=== PATIENT | female | born 1945 | race Caucasian/White ===

== ENCOUNTER 2017-11-06 15:39 | Emergency (ER) | payer MEDICARE, BC ==
[~2017-11-06] VITALS: Ht 157.5 cm; Wt 68.0 kg
[~2017-11-06 15:39] MED LIST: ALE70 PO; CALC600T63 PO; DIA5 PO; LEVO137T23 PO; LEVO137T26 PO; MULT-820 PO; ONDA4TAB97 PO; OXYGENHOME INH; RAMI10CA52 PO; SERT-173 PO; SERT20OR6 PO; VALS-25 PO
--- NOTE | 2017-11-06 15:55 | ER Report ---
History and Physical Time Seen By MD: 15:49 Hx. of Stated Complaint: flu like [id number], sob, N/V/D, currently on doxy HPI/ROS CHIEF COMPLAINT: dont feel well HISTORY OF PRESENT ILLNESS: Pt started sunday night/early Sunday with sorethroat , congestion, cough, chills and bodyaches. Pt went to urgent care and was started on doxy. PT no wwith decreased appetite and some loose stool inaddition to prior symptoms. No chest pain. No abd pain. not sure if she has had a fever. PT wears oxygen at night for copd but has not used it during the day. pt got her flu shot. Pt concerned about pneumonia REVIEW OF SYSTEMS: Constitutional: ? fever, + chills. Eyes: No discharge. ENT: + sore throat. Cardiovascular: No chest pain, no palpitations. Respiratory: + cough, + shortness of breath. Gastrointestinal: No abdominal pain, no vomiting. Genitourinary: No hematuria. Musculoskeletal: No back pain, + diffuse bodyaches Skin: No rashes. Neurological: No headache. Allergies: Coded Allergies: No Known Drug Allergies (Verified , 11/06/17) Home Meds Active Scripts Sertraline Hcl (ZOLOFT) 100 Mg Tablet, 1 TAB PO QDAY, #30 TAB Prov:AURORA CASTILLO MD 10/29/17 Ramipril (RAMIPRIL) 10 Mg Capsule, 1 CAP PO QDAY, #30 CAPSULE Prov:AURORA CASTILLO MD 10/29/17 Levothyroxine Sodium (LEVOTHYROXINE SODIUM) 137 Mcg Tablet, 1 TAB PO QDAY, #30 TAB Prov:AURORA CASTILLO MD 10/29/17 Reported Medications Multivitamin (MULTIVITAMINS) Unknown Strength Tablet, PO 05/15/17 Oxygen (OXYGEN) Unknown Strength Inha, INH QHS, L 05/15/17 Calcium Carbonate (CALCIUM) 600 Mg Tablet, 1200 MG PO QHS 05/15/17 Past Medical/Surgical History Pmhx: htn, hypothryoid, copd, divertic, kidney stones Pshx: faye, spinal surgery, tka Reviewed Nurses Notes: Yes Old Medical Records Reviewed: Yes Hx Smoking: No Smoking Status: Never Smoker Exposure to Second Hand Smoke?: Yes () Hx Substance Use Disorder: No Hx Alcohol Use: No Constitutional Vital Sign - Last 24 Hours 11/06/17 11/06/17 11/06/17 11/06/17 15:44 15:44 15:54 15:54 Temp 97.9 Pulse 71 68 Resp 16 B/P (MAP) 145/86 145/86 (105) Pulse Ox 95 95 O2 Delivery Room Air O2 Flow Rate 2.0 11/06/17 11/06/17 11/06/17 11/06/17 16:00 16:09 16:14 16:30 Pulse 67 67 B/P (MAP) 124/75 (91) 142/63 (89) Pulse Ox 95 93 Physical Exam General Appearance: The patient is alert, has no immediate need for airway protection and no signs of toxicity. Eyes: Pupils equal and round no pallor or injection, EOMI ENT: no pharyngeal erythema or exudates, Mucous membranes are moist, TM are nl b/l Respiratory: There are no retractions, lungs are clear to auscultation. Cardiovascular: Regular rate and rhythm. pulses are equal and symmetrical Gastrointestinal: Abdomen is soft and non tender, no masses, bowel sounds normal, no guarding, no rigidity or rebound Neurological: Cranial nerves II-XII grossly intact, no sensory or motor loss Skin: Warm and dry, no rashes. Musculoskeletal: Neck is supple non tender, no vertebral tenderness Extremities are nontender, non swollen and have full range of motion. DIFFERENTIAL DIAGNOSIS: After history and physical exam differential diagnosis was considered for flu, bronchitis, pneumonia, sinusitis Medical Decision Making Data Points Result Diagram: 11/06/17 1609 11/06/17 1609 Laboratory Hematology Test 11/06/17 16:00 11/06/17 16:09 11/06/17 16:12 Group A Streptococcus Screen Negative (NEGATIVE) Red Blood Count 5.35 M/uL (4.17-5.56) Mean Corpuscular Volume 87.6 fL (80.0-96.0) Mean Corpuscular Hemoglobin 29.5 pg (26.0-33.0) Mean Corpuscular Hemoglobin Concent 33.7 g/dL (32.0-36.0) Red Cell Distribution Width 13.4 % (11.5-14.5) Mean Platelet Volume 9.4 fL (7.2-11.1) Neutrophils (%) (Auto) 81.1 % (39.4-72.5) Lymphocytes (%) (Auto) 11.3 % (17.6-49.6) Monocytes (%) (Auto) 6.9 % (4.1-12.4) Eosinophils (%) (Auto) 0.6 % (0.4-6.7) Basophils (%) (Auto) 0.1 % (0.3-1.4) Nucleated RBC Relative Count (auto) 0.1 /100WBC Neutrophils # (Auto) 5.3 K/uL (2.0-7.4) Lymphocytes # (Auto) 0.7 K/uL (1.3-3.6) Monocytes # (Auto) 0.4 K/uL (0.3-1.0) Eosinophils # (Auto) 0.0 K/uL (0.0-0.5) Basophils # (Auto) 0.0 K/uL (0.0-0.1) Nucleated RBC Absolute Count (auto) 0.00 K/uL Sodium Level 137 mmol/L (137-145) Potassium Level 4.1 mmol/L (3.5-5.0) Chloride Level 102 mmol/L (98-107) Carbon Dioxide Level 27 mmol/L (22-31) Blood Urea Nitrogen 27 mg/dl (7-18) Creatinine 0.90 mg/dl (0.52-1.04) Glomerular Filtration Rate Calc > 60.0 Random Glucose 118 mg/dl (75-110) Calcium Level 9.5 mg/dl (8.4-10.2) Total Bilirubin 0.7 mg/dl (0.2-1.3) Aspartate Amino Transf (AST/SGOT) 31 U/L (0-35) Alanine Aminotransferase (ALT/SGPT) 36 U/L (0-56) Alkaline Phosphatase 91 U/L (0-126) Total Protein 7.4 gm/dl (6.3-8.2) Albumin 3.9 g/dl (3.5-5.0) Influenza Virus Type A (PCR) Negative (NEGATIVE) Influenza Virus Type B (PCR) Positive (NEGATIVE) Chemistry Test 11/06/17 16:00 11/06/17 16:09 11/06/17 16:12 Group A Streptococcus Screen Negative (NEGATIVE) White Blood Count 6.5 k/uL (4.5-11.0) Red Blood Count 5.35 M/uL (4.17-5.56) Hemoglobin 15.8 g/dL (12.0-16.0) Hematocrit 46.9 % (34.0-47.0) Mean Corpuscular Volume 87.6 fL (80.0-96.0) Mean Corpuscular Hemoglobin 29.5 pg (26.0-33.0) Mean Corpuscular Hemoglobin Concent 33.7 g/dL (32.0-36.0) Red Cell Distribution Width 13.4 % (11.5-14.5) Platelet Count 160 K/uL (150-450) Mean Platelet Volume 9.4 fL (7.2-11.1) Neutrophils (%) (Auto) 81.1 % (39.4-72.5) Lymphocytes (%) (Auto) 11.3 % (17.6-49.6) Monocytes (%) (Auto) 6.9 % (4.1-12.4) Eosinophils (%) (Auto) 0.6 % (0.4-6.7) Basophils (%) (Auto) 0.1 % (0.3-1.4) Nucleated RBC Relative Count (auto) 0.1 /100WBC Neutrophils # (Auto) 5.3 K/uL (2.0-7.4) Lymphocytes # (Auto) 0.7 K/uL (1.3-3.6) Monocytes # (Auto) 0.4 K/uL (0.3-1.0) Eosinophils # (Auto) 0.0 K/uL (0.0-0.5) Basophils # (Auto) 0.0 K/uL (0.0-0.1) Nucleated RBC Absolute Count (auto) 0.00 K/uL Glomerular Filtration Rate Calc > 60.0 Calcium Level 9.5 mg/dl (8.4-10.2) Total Bilirubin 0.7 mg/dl (0.2-1.3) Aspartate Amino Transf (AST/SGOT) 31 U/L (0-35) Alanine Aminotransferase (ALT/SGPT) 36 U/L (0-56) Alkaline Phosphatase 91 U/L (0-126) Total Protein 7.4 gm/dl (6.3-8.2) Albumin 3.9 g/dl (3.5-5.0) Influenza Virus Type A (PCR) Negative (NEGATIVE) Influenza Virus Type B (PCR) Positive (NEGATIVE) ED Course/Re-evaluation ED Course \will check pt for flu as well as pneumonia by xray. 11/06/2017 5:13:20 pm Pt postive for influenza B. will treat. pt feels the doxy is making her nauseated. told to stop doxy Decision to Disposition Date: Nov 06, 2017 Decision to Disposition Time: 17:13 Depart Departure Latest Vital Signs Vital Signs Date Time Temp Pulse Resp B/P (MAP) Pulse Ox O2 Delivery O2 Flow Rate FiO2 11/06/17 16:30 142/63 (89) 11/06/17 16:14 67 93 11/06/17 15:54 2.0 11/06/17 15:44 97.9 16 Room Air Impression: Primary Impression: Influenza B Condition: Improved Disposition: HOME OR SELF-CARE Referrals: COLEMAN DAVIDSON MD (PCP) 5 Days New Scripts Oseltamivir Phosphate (TAMIFLU) 75 Mg Cap 75 MG FT BID, #10 CAP Prov: ADRIANA CALHOUN DO 11/06/17 Departure Forms: ER Transition Record, Medications Reconciliation, Patient Portal Information Patient Instructions: Influenza (DC) Additional Instructions: Your tests came back positive for influenza B. You can stop your doxy. You need to start tamiflu twice a day for 5 days. Motrin/tylenol as needed for bodyaches and pain. Use your oxygen as needed night and day. Follow up with your doctor Return if symptoms worsen. ADRIANA CALHOUN DO Nov 06, 2017 15:55
[2017-11-06 16:30] LABS: PLATELET COUNT, AUTOMATED 160 K/uL (150-450)
[2017-11-06] MEDS ORDERED: OSE75 FT (17:15)
[2017-11-06] MEDS ORDERED: OSELTAMIVIR PHOS 75 MG CAP PO ONE (17:15)
--- NOTE | 2017-11-06 17:15 | RADIOLOGY IMAGING REPORT ---
FACILITY: [facility] [place] PATIENT NAME: Aury Chan : 1945 MR: [id number] V: [id number] EXAM DATE: ORDERING PHYSICIAN: ADRIANA CALHOUN TECHNOLOGIST: Location: [facility] Patient: Aury Chan : 1945 Visit/Account:[id number] Date of Sevice: 11/06/2017 CHEST PA AND LAT HISTORY: Cough. Sore throat. COMPARISON: 11/01/2014 FINDINGS: Cardiomediastinal contours: Mildly enlarged. Lungs and pleura: Bronchial thickening with increased bronchovascular markings, unchanged. No acute c onsolidation. Chronic mild blunting of the right costophrenic angle. Bones/soft tissues: Normal Other findings: None significant IMPRESSION: 1. Stable mild cardiomegaly with bronchial thickening. No acute consolidation. Report Dictated By: Nestor Lawrence MD at 11/06/2017 5:06 PM Report E-Signed By: Nestor Lawrence MD at 11/06/2017 5:09 PM WSN:[id number]
[2017-11-06 17:26] VITALS: BP 120/93
== END 2017-11-06 17:32 | disposition home or self-care (01) ==
LOC: ER 15:49
DX: J11.1 Influenza due to unidentified influenza virus with other respiratory manifestations (principal)
CPT/HCPCS: 36415; 71046; 85025; 87081; 87502; 87880; 99283; A9270; 82040; 82247; 82310; 82374; 82435; 82565; 82947; 84075; 84132; 84155; 84295; 84450; 84460; 84520

== ENCOUNTER → 2018-05-16 | Outpatient (CLI) | payer MEDICARE, BC ==
[~2018-05-16] MED LIST changes: +OSE75 FT; -SERT20OR6 PO
--- NOTE | 2018-05-16 16:23 | RADIOLOGY IMAGING REPORT ---
FACILITY: [facility] PATIENT NAME: LANA BROCK : [id number] MR: [id number] V: [id number] EXAM DATE: [id number] ORDERING PHYSICIAN: COLEMAN DAVIDSON TECHNOLOGIST: Mackenzie Cummings PROCEDURE:BILATERAL DIGITAL SCREENING MAMMOGRAM WITH CAD ASSISTED INTERPRETATION & 3D TOMOSYNTHESIS COMPARISON:Prior mammograms 12/19/16, 12/08/15, 12/01/14, 11/27/13, 11/26/12, 11/22/11. INDICATIONS:SCREENING FINDINGS: A small amount of fibroglandular tissue is seen throughout the breasts. The parenchymal pattern has remained stable allowing for difference in mammographic technique & patient positioning. There is no evidence of malignant appearing mass, malignant appearing calcifications or other secondary sign of malignancy in either breast. DIAGNOSTIC CATEGORY 1--NEGATIVE. RECOMMENDATIONS: ROUTINE MAMMOGRAM AND CLINICAL EVALUATION. IMPRESSION: BIRADS 1: Negative. No significant abnormality is seen. Dictated by: Chula Don M.D. on 05/16/2018 at 15:30 Transcribed by: ENRIQUETA on 05/16/2018 at 16:00 Approved by: Chula Don M.D. on 05/16/2018 at 16:22 [facility]
== END ==
LOC: MAMO 01:45
PROVIDERS: ATTEND Internal Medicine
DX: Z12.31 Encounter for screening mammogram for malignant neoplasm of breast (principal)
CPT/HCPCS: 77063; 77067

== ENCOUNTER → 2018-05-21 | Outpatient (CLI) | payer MEDICARE, BC ==
[2018-05-21 07:54] LABS: PLATELET COUNT, AUTOMATED 192 K/uL (150-450)
[2018-05-21 08:48] LABS: LDL CHOLESTEROL 122 mg/dl
== END ==
LOC: LAB 07:33
PROVIDERS: ATTEND Internal Medicine
DX: E78.5 Hyperlipidemia, unspecified (principal); I10 Essential (primary) hypertension; E03.9 Hypothyroidism, unspecified; R73.9 Hyperglycemia, unspecified
CPT/HCPCS: 36415; 81001; 82040; 82247; 82310; 82374; 82435; 82465; 82565; 82947; 83036; 83718; 84075; 84132; 84155; 84295; 84443; 84450; 84460; 84478; 84520; 85025

== ENCOUNTER → 2018-06-03 | Outpatient (CLI) | payer MEDICARE, BC ==
[~2018-06-03] MED LIST changes: +FLUT16SP19 NS; +PANT40TA65 PO
== END ==
LOC: US 03:43
PROVIDERS: ATTEND Internal Medicine
DX: I51.7 Cardiomegaly (principal); I27.20 Pulmonary hypertension, unspecified; J98.4 Other disorders of lung
CPT/HCPCS: 93306; 94060; 94726; 94729

== ENCOUNTER → 2018-06-12 | Outpatient (CLI) | payer MEDICARE, BC ==
[~2018-06-12] MED LIST changes: +BARIUM SULFATE 176 GM BTL PO ONE; +BARIUM SULFATE 340 GM POWD ONE
--- NOTE | 2018-06-12 09:36 | RADIOLOGY IMAGING REPORT ---
FACILITY: [facility] PATIENT NAME: Aury Chan : 1945 MR: [id number] V: [id number] EXAM DATE: ORDERING PHYSICIAN: NGOC STOKES TECHNOLOGIST: Location: [facility] [place] Patient: Aury Chan : 1945 Visit/Account:[id number] Date of Sevice: 06/12/2018 Exam type: ESOPHAGRAM History: Dysphasia, difficulty with solid foods Comparison: None. Findings: Double contrast esophagram was performed with thick and thin barium and air contrast. The fluoroscop y dose area product was 192.41 micro-Rainey per meter squared There is a prominent impression on the posterior wall of the upper cervical esophagus at the approxim ate level of C5-6 which is likely related to the cricopharyngeus muscle. 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 During maximum narrowing in this location, as seen on the lateral view , the opacified lumen measured 5 mm measured in the AP dimension. A barium tablet was not administered du e to the high location of this narrowing for fear of aspiration. There is a small hiatal hernia with mild narrowing at the lower esophageal sphincter. There was a ve ry large amount of gastric esophageal reflux observed to the level of the hypopharynx IMPRESSION: 1. 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 At the same level there is a thin membra ne-like indentation along the anterior wall of the upper cervical esophagus likely related to esophag eal web. This combination is producing high-grade narrowing as described above. Report Dictated By: Chula Don MD at 06/12/2018 9:17 AM Report E-Signed By: Chula Don MD at 06/12/2018 9:33 AM WSN:[id number]
== END ==
LOC: RAD 00:33
PROVIDERS: ATTEND Otolaryngology
DX: K44.9 Diaphragmatic hernia without obstruction or gangrene (principal); K21.9 Gastro-esophageal reflux disease without esophagitis
CPT/HCPCS: 74220

== ENCOUNTER → 2018-07-11 | Outpatient (CLI) | payer MEDICARE, BC ==
[~2018-07-11] MED LIST changes: -BARIUM SULFATE 176 GM BTL PO ONE; -BARIUM SULFATE 340 GM POWD ONE; -RAMI10CA52 PO; +RAMI10CA9 PO
== END ==
LOC: RESP 19:48
PROVIDERS: ATTEND Internal Medicine
DX: G47.33 Obstructive sleep apnea (adult) (pediatric) (principal); G47.61 Periodic limb movement disorder; G47.36 Sleep related hypoventilation in conditions classified elsewhere

== ENCOUNTER 2018-07-21 12:36 | Emergency (ER) | payer MEDICARE, BC ==
--- NOTE | 2018-07-21 12:55 | ER Report ---
History and Physical Time Seen By : 12:55 Hx. of Stated Complaint: tripped, hit back on a desk on sunday. today she is spasmed, hard to move HPI/ROS CHIEF COMPLAINT: Fall with back pain HISTORY OF PRESENT ILLNESS: 73-year-old female patient presents to the emergency room with complaint of a fall. Patient states that on Sunday she was wearing her flip-flop sandals. She states that she tripped on a throw rug and fell backwards hitting her back and her head on the corner of a role top desk. Patient states she did not have a loss of consciousness. She states she's been having significant amounts of pain since then. She states the pain is intermittent. She states she will have spasms no chest spasms she will hurt really bad. She states that yesterday when she was steam boat was they are he had planned. She states that she had significant amounts of pain during that time. She denies any nausea, vomiting, headache. She denies any dizziness. REVIEW OF SYSTEMS: Respiratory: No cough, no dyspnea. Cardiovascular: No chest pain, no palpitations. Gastrointestinal: No vomiting, no abdominal pain. Musculoskeletal: As noted above Allergies: Coded Allergies: No Known Drug Allergies (Verified , 07/21/18) Home Meds Active Scripts Hydrocodone Bit/Acetaminophen (HYDROCODON-ACETAMINOPHEN 5-325) 1 Each Tablet, 1 EACH PO Q4-6H PRN for PAIN, #20 TAB Prov:CLAYTON JORGENSEN [facility] 07/21/18 Cyclobenzaprine Hcl (CYCLOBENZAPRINE HCL) 10 Mg Tablet, 10 MG PO TID PRN for MUSCLE SPASMS, #21 TAB Prov:CLAYTON JORGENSEN 07/21/18 Pantoprazole Sodium (PANTOPRAZOLE SODIUM) 40 Mg Tablet.dr, 40 MG PO QDAY, #30 TAB.SR 3 Refills Prov:COLEMAN DAVIDSON MD 05/29/18 Sertraline Hcl (ZOLOFT) 100 Mg Tablet, 1 TAB PO QDAY, #90 TAB 4 Refills Prov:COLEMAN DAVIDSON MD 11/28/17 Ramipril (RAMIPRIL) 10 Mg Capsule, 1 CAP PO QDAY, #90 CAPSULE 3 Refills Prov:COLEMAN DAVIDSON MD 11/28/17 Levothyroxine Sodium (LEVOTHYROXINE SODIUM) 137 Mcg Tablet, 1 TAB PO QDAY, #90 TAB 3 Refills Prov:COLEMAN DAVIDSON MD 11/28/17 Reported Medications Multivitamin (MULTIVITAMINS) Unknown Strength Tablet, PO 05/15/17 Oxygen (OXYGEN) Unknown Strength Inha, INH QHS, L 05/15/17 Calcium Carbonate (CALCIUM) 600 Mg Tablet, 1200 MG PO QHS 05/15/17 Discontinued Scripts Fluticasone Prop 50 Mcg Ns (FLONASE 50 MCG NS) 16 Gm [place].susp, 2 SPRAYS NS QDAY, #1 BOT 3 Refills Prov:COLEMAN DAVIDSON MD 05/29/18 Past Medical/Surgical History Patient has a past medical history of hypertension, oxygen night, pneumonia, arthritis, fracture, hypothyroidism, depression. Patient has a surgical history of back surgery, ankle surgery, cholecystitis. Patient has a family medical history of diabetes. Reviewed Nurses Notes: Yes Hx Smoking: No Smoking Status: Never Smoker Exposure to Second Hand Smoke?: Yes () Hx Substance Use Disorder: No Hx Alcohol Use: No Constitutional Vital Sign - Last 24 Hours 07/21/18 07/21/18 07/21/18 07/21/18 12:36 12:42 12:42 12:51 Temp 97.4 Pulse ??? 70 65 Resp 14 B/P (MAP) 168/92 (117) 168/92 Pulse Ox 92 94 O2 Delivery Room Air 07/21/18 07/21/18 07/21/18 07/21/18 13:00 13:06 13:21 13:30 Pulse ??? 70 B/P (MAP) 121/105 (110) 104/89 (94) Pulse Ox 81 86 07/21/18 07/21/18 07/21/18 07/21/18 13:36 13:51 14:00 14:06 Pulse ? B/P (MAP) 115/78 (90) 07/21/18 07/21/18 07/21/18 07/21/18 14:21 14:26 14:30 14:41 Pulse ? B/P (MAP) 164/144 (151) 07/21/18 07/21/18 07/21/18 07/21/18 14:56 15:00 15:11 15:26 Pulse ? B/P (MAP) 134/63 (86) 07/21/18 15:30 B/P (MAP) ???/??? (1665) Physical Exam General Appearance: The patient is alert, has no immediate need for airway protection and no current signs of toxicity. Respiratory: Chest is non tender, lungs are clear to auscultation. Cardiac: regular rate and rhythm Gastrointestinal: Abdomen is soft and non tender, no masses, bowel sounds normal. Musculoskeletal: Neck: Neck is supple and non tender. Extremities have full range of motion and are non tender. Back: Patient does have tenderness to the back, there is no bruising noted. Skin: No rashes or lesions. DIFFERENTIAL DIAGNOSIS: After history and physical exam differential diagnosis was considered for contusion, fracture, compression fracture, intracranial hemorrhage. Medical Decision Making EKG/Imaging Imaging C-SPINE W/O CONTRAST COMPARISONS: None. ADDITIONAL PERTINENT HISTORY: Fall TECHNIQUE: Multiple axial images were obtained from the skull base through the upper thoracic spine with coronal and sagittal reformatted images obtained with out IV contrast. One of the following dose optimization techniques was utilized in the performance of this exam: Automated exposure control; adjustment of the mA and/or kV according to the patient's size; or use of an iterative reconstruction technique. Specific details can be referenced in the facility's radiology CT exam operational policy. FINDINGS. Vertebral body heights and alignment: Negative. Vertebral bodies: Anteriorly and posteriorly directed osteophytes at multiple levels. No bony fractures. Disc spaces: Mild disc space narrowing at multiple levels. No appreciable canal stenosis. Cranial cervical junction: Negative. Cervical thoracic junction: Negative. Surrounding soft tissues: Negative Lung apices: Scarring involving both lung apices. IMPRESSION: 1. Spondylitic change involving the cervical spine. 2. No acute appearing bony abnormalities. Report Dictated By: Yosi Nguyen MD at 07/21/2018 1:40 PM Report E-Signed By: Yosi Nguyen MD at 07/21/2018 1:[address] scan without contrast COMPARISONS: Head CT dated November 01, 2014 ADDITIONAL PERTINENT HISTORY: Fall, hitting head. TECHNIQUE: Multiple axial images were obtained from the skull base to the vertex without IV contrast. One of the following dose optimization techniques was utilized in the performance of this exam: Automated exposure control; adjustment of the mA and/or kV according to the patient's size; or use of an iterative reconstruction technique. Specific details can be referenced in the facility's radiology CT exam operational policy. FINDINGS: Midline shift: Negative Ventricles: Negative Brain parenchyma: Region of encephalomalacia involving the right parietal lobe compatible with a remote area of infarct. Mild patchy hypoattenuation within the periventricular and subcortical white matter, nonspecific but likely representing small vessel ischemic change on a chronic basis. These findings are stable when compared to previous exam. Extra-axial spaces: Mild cerebral atrophy. Intracranial vasculature: Cavernous internal carotid and distal vertebral artery calcifications. Otherwise negative Osseous structures: Negative Paranasal sinuses and mastoid air cells: Negative Surrounding soft tissues and orbits: Negative IMPRESSION: 1. 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 Stable from previous exam. 2. No acute intracranial pathology. Report Dictated By: Yosi Nguyen MD at 07/21/2018 1:33 PM Report E-Signed By: Yosi Nguyen MD at 07/21/2018 1:40 PM T-SPINE W/O CONTRAST COMPARISONS: Fall. ADDITIONAL PERTINENT HISTORY: Fall hitting head. TECHNIQUE: Multiple axial images were obtained through the thoracic spine. Coronal and sagittal reformatted images obtained off the axial source data. No IV contrast was used for the exam. One of the following dose optimization techniques was utilized in the performance of this exam: Automated exposure control; adjustment of the mA and/or kV according to the patient's size; or use of an iterative reconstruction technique. Specific details can be referenced in the facility's radiology CT exam operational policy. FINDINGS: Vertebral body heights and alignment: Mild increase in kyphosis. Vertebral bodies: 3 column fracture compatible with a Chance fracture at the level of T12.. Facet hypertrophic changes at multiple levels. Thin syndesmophytes along the anterior aspects of the S2 bodies as well as along the posterior aspects of the vertebral bodies raising the concern for underlying ankylosing spondylitis. Disc spaces: Negative. Cervical thoracic junction: Negative. Surrounding soft tissues and visualized lung parenchyma: Regions of scarring involving both hemithoraces. Mild atherosclerotic disease of the thoracic aortic arch. Well-circumscribed lesion measuring 2.0 cm involving the left adrenal gland with average Hounsfield units of -1 compatible with an underlying adenoma.. IMPRESSION: 1. Superimposed upon findings concerning for ankylosing spondylitis are findings of a 3 column fracture compatible with underlying chance fracture at the level of T12. Results were discussed with CLAYTON JORGENSEN at 07/21/2018 1:58 PM. Report Dictated By: Yosi Nguyen MD at 07/21/2018 1:49 PM Report E-Signed By: Yosi Nguyen MD at 07/21/2018 1:58 PM ED Course/Re-evaluation ED Course Patient was admitted to an exam room, history and physical were obtained. A difficult diagnoses were considered. On examination the lungs are clear, heart is regular, abdomen soft and nontender. Patient does have tenderness to the tho racic spine. There is no bruising noted. A CT scan of the head was done a CT scan of the C-spine as well as T-spine were done. The head and C-spine were negative. The T-spine did show a fracture of the T12 vertebrae. It does go through 3 columns. I discussed the case with Dr. Badillo, orthopedist. He did come in and he looked at the images and recommended a TLSO splint. That was vignesh raj on the patient. She did have some improvement in her comfort with Norflex and a Lortab that was given here in the emergency room. We will go ahead and discharge her home with Flexeril and Lortab. She is to return to emergency room if condition worsens. She is to follow-up with Dr. Badillo in 2 weeks. I discussed this with the patient and her and they verbalized understan ding and agreement with plan. Decision to Disposition Date: Jul 21, 2018 Decision to Disposition Time: 15:41 Depart Departure Latest Vital Signs Vital Signs Date Time Temp Pulse Resp B/P (MAP) Pulse Ox O2 Delivery O2 Flow Rate FiO2 07/21/18 15:30 ???/??? (1665) 07/21/18 15:26 ??? 07/21/18 13:21 86 07/21/18 12:42 97.4 14 Room Air Impression: Primary Impression: T12 vertebral fracture Condition: Improved Disposition: HOME OR SELF-CARE Referrals: COLEMAN DAVIDSON MD (PCP) CHRISSY BADILLO MD New Scripts Hydrocodone Bit/Acetaminophen (HYDROCODON-ACETAMINOPHEN 5-325) 1 Each Tablet 1 EACH PO Q4-6H PRN for PAIN, #20 TAB Prov: CLAYTON JORGENSEN [facility] 07/21/18 Cyclobenzaprine Hcl (CYCLOBENZAPRINE HCL) 10 Mg Tablet 10 MG PO TID PRN for MUSCLE SPASMS, #21 TAB Prov: CLAYTON JORGENSEN 07/21/18 Patient Instructions: GENERAL ER DISCHARGE INSTRUCTIONS Additional Instructions: Limit activity by pain. Get plenty of rest. Increase fluid intake. Return to the ER if condition worsens. Follow up with Dr. Badillo in 2 weeks, call tomorrow to make an appointment. Problem Qualifiers Primary Impression: T12 vertebral fracture Encounter type: initial encounter Fracture type: closed Fracture morphology: other fracture Qualified Codes: S22.088A - Other fracture of t11-T12 vertebra, initial encounter for closed fracture JOSLYNCLAYTON ESTRELLA Jul 21, 2018 12:55
[2018-07-21] MEDS ORDERED: ORPHENADRINE 60MG/2ML INJ IM ONE (13:00)
[2018-07-21] MEDS ORDERED: APAP/HYDROCODONE 325/5 TAB PO ONE (13:30)
--- NOTE | 2018-07-21 13:43 | RADIOLOGY IMAGING REPORT ---
FACILITY: [facility] PATIENT NAME: Aury Chan : 1945 MR: [id number] V: [id number] EXAM DATE: ORDERING PHYSICIAN: CLAYTON JORGENSEN TECHNOLOGIST: Location: [facility] Patient: Aury Chan : 1945 Visit/Account:[id number] Date of Sevice: 07/21/[address] scan without contrast COMPARISONS: Head CT dated November 01, 2014 ADDITIONAL PERTINENT HISTORY: Fall, hitting head. TECHNIQUE: Multiple axial images were obtained from the skull base to the vertex without IV contrast . One of the following dose optimization techniques was utilized in the performance of this exam: Aut omated exposure control; adjustment of the mA and/or kV according to the patient's size; or use of an iterative reconstruction technique. Specific details can be referenced in the facility's radiology CT exam operational policy. FINDINGS: Midline shift: Negative Ventricles: Negative Brain parenchyma: Region of encephalomalacia involving the right parietal lobe compatible with a rem ote area of infarct. Mild patchy hypoattenuation within the periventricular and subcortical white mat ter, nonspecific but likely representing small vessel ischemic change on a chronic basis. These findi ngs are stable when compared to previous exam. Extra-axial spaces: Mild cerebral atrophy. Intracranial vasculature: Cavernous internal carotid and distal vertebral artery calcifications. Oth erwise negative Osseous structures: Negative Paranasal sinuses and mastoid air cells: Negative Surrounding soft tissues and orbits: Negative IMPRESSION: 1. 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 Stable from previous exam. 2. No acute intracranial pathology. Report Dictated By: Yosi Nguyen MD at 07/21/2018 1:33 PM Report E-Signed By: Yosi Nguyen MD at 07/21/2018 1:40 PM WSN:[id number]
--- NOTE | 2018-07-21 13:47 | RADIOLOGY IMAGING REPORT ---
[place] [facility] [place] NAME: Aury Chan : 1945 MR: [id number] V: [id number] EXAM DATE: ORDERING PHYSICIAN: CLAYTON JORGENSEN TECHNOLOGIST: Location: [facility] [place] Patient: Aury Chan : 1945 Visit/Account:[id number] Date of Sevice: 07/21/2018 C-SPINE W/O CONTRAST COMPARISONS: None. ADDITIONAL PERTINENT HISTORY: Fall TECHNIQUE: Multiple axial images were obtained from the skull base through the upper thoracic spine with coronal and sagittal reformatted images obtained without IV contrast. One of the following dose optimization techniques was utilized in the performance of this exam: Automated exposure control; adj ustment of the mA and/or kV according to the patient's size; or use of an iterative reconstruction t echnique. Specific details can be referenced in the facility's radiology CT exam operational policy. FINDINGS. Vertebral body heights and alignment: Negative. Vertebral bodies: Anteriorly and posteriorly directed osteophytes at multiple levels. No bony fractur es. Disc spaces: Mild disc space narrowing at multiple levels. No appreciable canal stenosis. Cranial cervical junction: Negative. Cervical thoracic junction: Negative. Surrounding soft tissues: Negative Lung apices: Scarring involving both lung apices. IMPRESSION: 1. Spondylitic change involving the cervical spine. 2. No acute appearing bony abnormalities. Report Dictated By: Yosi Nguyen MD at 07/21/2018 1:40 PM Report E-Signed By: Yosi Nguyen MD at 07/21/2018 1:44 PM WSN:[id number]
--- NOTE | 2018-07-21 14:02 | RADIOLOGY IMAGING REPORT ---
FACILITY: [facility] [place] PATIENT NAME: Aury Chan : 1945 MR: [id number] V: [id number] EXAM DATE: ORDERING PHYSICIAN: CLAYTON JORGENSEN TECHNOLOGIST: Location: [facility] [place] Patient: Aury Chan : 1945 Visit/Account:[id number] Date of Sevice: 07/21/2018 T-SPINE W/O CONTRAST COMPARISONS: Fall. ADDITIONAL PERTINENT HISTORY: Fall hitting head. TECHNIQUE: Multiple axial images were obtained through the thoracic spine. Coronal and sagittal ref ormatted images obtained off the axial source data. No IV contrast was used for the exam. One of th e following dose optimization techniques was utilized in the performance of this exam: Automated expo sure control; adjustment of the mA and/or kV according to the patient's size; or use of an iterative reconstruction technique. Specific details can be referenced in the facility's radiology CT exam op erational policy. FINDINGS: Vertebral body heights and alignment: Mild increase in kyphosis. Vertebral bodies: 3 column fracture compatible with a Chance fracture at the level of T12.. Facet hyp ertrophic changes at multiple levels. Thin syndesmophytes along the anterior aspects of the S2 bodies as well as along the posterior aspects of the vertebral bodies raising the concern for underlying an kylosing spondylitis. Disc spaces: Negative. Cervical thoracic junction: Negative. Surrounding soft tissues and visualized lung parenchyma: Regions of scarring involving both hemithor aces. Mild atherosclerotic disease of the thoracic aortic arch. Well-circumscribed lesion measuring 2 .0 cm involving the left adrenal gland with average Hounsfield units of -1 compatible with an underly ing adenoma.. IMPRESSION: 1. Superimposed upon findings concerning for ankylosing spondylitis are findings of a 3 column fractu re compatible with underlying chance fracture at the level of T12. Results were discussed with CLAYTON JORGENSEN at 07/21/2018 1:58 PM. Report Dictated By: Yosi Nguyen MD at 07/21/2018 1:49 PM Report E-Signed By: Yosi Nguyen MD at 07/21/2018 1:58 PM WSN:[id number]
[2018-07-21] MEDS ORDERED: HYDR-385 PO (15:38)
[2018-07-21] MEDS ORDERED: CYCL10TA29 PO (15:38)
== END 2018-07-21 15:46 | disposition home or self-care (01) ==
LOC: ER 13:08
DX: S22.088A Other fracture of T11-T12 vertebra, initial encounter for closed fracture (principal); W01.190A Fall on same level from slipping, tripping and stumbling with subsequent striking against furniture, initial encounter
CPT/HCPCS: 70450; 72125; 72128; 96372; 99285; A9270; J2360

== ENCOUNTER 2018-07-22 09:02 | Observation (INO) | payer MEDICARE, BC ==
[~2018-07-22] VITALS: Ht 154.9 cm; Wt 69.4 kg
[~2018-07-22 09:02] MED LIST changes: +CYCL10TA29 PO; +HYDR-385 PO
[2018-07-22] MEDS ORDERED: fentaNYL CITR 100 MCG/2 ML AMP IVP ONE (09:40)
[2018-07-22] MEDS ORDERED: NS(*) 0.9% 1000 ML BAG 1,000 ML IV ONE (10:40)
[2018-07-22 11:13] LABS: PLATELET COUNT, AUTOMATED 190 K/uL (150-450)
--- NOTE | 2018-07-22 11:26 | ER Report ---
History and Physical Time Seen By : 09:00 Hx. of Stated Complaint: Pt c/o persistent back pain with bladder incontinence. Seen here yesterday for same and fitted in brace after having been found to have "a broken back in 3 places". States her pain is not well controlled and she is having difficulty moving at home. HPI/ROS CHIEF COMPLAINT: back pain HISTORY OF PRESENT ILLNESS: pt presents 1 d after being evaluated in ED for spine injury with dx of chance fracture t12; she was sent home with tlso brace, hydrocodone and flexeril. However, despite this she has not tolerated pain at home. Despite nursing note; her incontinence has been urge; she is in too much pain to make it to the bathroom; she has been able to tell when she has to go.Pt notes decreased po intake at home due to pain and inability to ambulate. Her , who has ongoing back pain, is unable to significantly help her.She does not have home health care. She has no new numbness or weakness REVIEW OF SYSTEMS: Constitutional: No fever, no chills. Eyes: No discharge. ENT: No sore throat. Cardiovascular: No chest pain, no palpitations. Respiratory: No cough, no shortness of breath. Gastrointestinal: No abdominal pain, no vomiting. Genitourinary: No hematuria. Musculoskeletal: above Skin: No rashes. Neurological: No headache. Remainder of the 14 system rev: Yes Allergies: Coded Allergies: No Known Drug Allergies (Verified , 07/22/18) Home Meds Active Scripts Hydrocodone Bit/Acetaminophen (HYDROCODON-ACETAMINOPHEN 5-325) 1 Each Tablet, 1 EACH PO Q4-6H PRN for PAIN, #20 TAB Prov:CLAYTON JORGENSEN 07/21/18 Cyclobenzaprine Hcl (CYCLOBENZAPRINE HCL) 10 Mg Tablet, 10 MG PO TID PRN for MUSCLE SPASMS, #21 TAB Prov:CLAYTON JORGENSEN 07/21/18 Pantoprazole Sodium (PANTOPRAZOLE SODIUM) 40 Mg Tablet.dr, 40 MG PO QDAY, #30 TA B.SR 3 Refills Prov:COLEMAN DAVIDSON MD 05/29/18 Sertraline Hcl (ZOLOFT) 100 Mg Tablet, 1 TAB PO QDAY, #90 TAB 4 Refills Prov:COLEMAN DAVIDSON MD 11/28/17 Ramipril (RAMIPRIL) 10 Mg Capsule, 1 CAP PO QDAY, #90 CAPSULE 3 Refills Prov:COLEMAN DAVIDSON MD 11/28/17 Levothyroxine Sodium (LEVOTHYROXINE SODIUM) 137 Mcg Tablet, 1 TAB PO QDAY, #90 TAB 3 Refills Prov:COLEMAN DAVIDSON MD 11/28/17 Reported Medications Multivitamin (MULTIVITAMINS) Unknown Strength Tablet, PO 05/15/17 Oxygen (OXYGEN) Unknown Strength Inha, INH QHS, L 05/15/17 Calcium Carbonate (CALCIUM) 600 Mg Tablet, 1200 MG PO QHS 05/15/17 Discontinued Scripts Fluticasone Prop 50 Mcg Ns (FLONASE 50 MCG NS) 16 Gm [place].susp, 2 SPRAYS NS QDAY, #1 BOT 3 Refills Prov:COLEMAN DAVIDSON MD 05/29/18 Hx Smoking: No Smoking Status: Never Smoker Exposure to Second Hand Smoke?: Yes () Hx Substance Use Disorder: No Hx Alcohol Use: No Constitutional Vital Sign - Last 24 Hours 07/22/18 07/22/18 07/22/18 07/22/18 09:02 09:07 09:09 09:17 Temp 98.3 Pulse ??? 73 Resp 16 B/P (MAP) 148/76 (100) 148/76 Pulse Ox 90 93 O2 Delivery Nasal Cannula 07/22/18 07/22/18 07/22/18 07/22/18 09:30 09:32 09:47 10:00 Pulse 81 72 B/P (MAP) 135/77 (96) 127/57 (80) Pulse Ox 92 90 07/22/18 07/22/18 07/22/18 07/22/18 10:02 10:17 10:30 10:32 Pulse 76 69 67 B/P (MAP) 118/63 (81) Pulse Ox 90 90 91 O2 Delivery Nasal Cannula Nasal Cannula O2 Flow Rate 4 4 07/22/18 10:47 Pulse 70 Pulse Ox 91 Physical Exam General Appearance: [The patient is alert, has no immediate need for airway protection and no signs of toxicity. Eyes: Pupils equal and round no pallor or injection. ENT, Mouth: Mucous membranes are moist. Respiratory: There are no retractions, lungs are clear to auscultation. Cardiovascular: Regular rate and rhythm. Gastrointestinal: abdomen soft, nt Neurological: alert, oriented. 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 Musculoskeletal: Neck is supple non tender. Extremities are nontender, nonswollen and have full range of motion. DIFFERENTIAL DIAGNOSIS: After history and physical exam differential diagnosis was considered for unstable spine fracture, pain control, infection or other emergent etiology. Medical Decision Making Data Points Result Diagram: 07/22/18 1058 07/22/18 1058 Laboratory Hematology Test 07/22/18 10:50 07/22/18 10:58 Urine Color Yellow Urine Clarity Clear Urine pH 5.0 pH (4.8-9.5) Urine Specific [place] 1.024 Urine Protein Negative mg/dL (NEGATIVE) Urine Glucose (UA) Negative mg/dL (NEGATIVE) Urine Ketones Trace mg/dL (NEGATIVE) Urine Blood Negative (NEGATIVE) Urine Nitrite Negative (NEGATIVE) Urine Bilirubin Negative (NEGATIVE) Urine Urobilinogen 2.0 mg/dL (0.2-1.9) Urine Leukocyte Esterase Negative (NEGATIVE) Urine RBC None /HPF (0-2/HPF) Urine WBC <1 /HPF (0-5/HPF) Urine Squamous Epithelial Cells Few /LPF (</=FEW) Urine Bacteria Few /HPF (NONE-FEW) Urine Mucus None /HPF (NONE-FEW) Red Blood Count 5.43 M/uL (4.17-5.56) Mean Corpuscular Volume 90.0 fL (80.0-96.0) Mean Corpuscular Hemoglobin 29.8 pg (26.0-33.0) Mean Corpuscular Hemoglobin Concent 33.2 g/dL (32.0-36.0) Red Cell Distribution Width 13.4 % (11.5-14.5) Mean Platelet Volume 9.4 fL (7.2-11.1) Neutrophils (%) (Auto) 80.1 % (39.4-72.5) Lymphocytes (%) (Auto) 10.5 % (17.6-49.6) Monocytes (%) (Auto) 7.2 % (4.1-12.4) Eosinophils (%) (Auto) 1.8 % (0.4-6.7) Basophils (%) (Auto) 0.4 % (0.3-1.4) Nucleated RBC Relative Count (auto) 0.0 /100WBC Neutrophils # (Auto) 5.9 K/uL (2.0-7.4) Lymphocytes # (Auto) 0.8 K/uL (1.3-3.6) Monocytes # (Auto) 0.5 K/uL (0.3-1.0) Eosinophils # (Auto) 0.1 K/uL (0.0-0.5) Basophils # (Auto) 0.0 K/uL (0.0-0.1) Nucleated RBC Absolute Count (auto) 0.00 K/uL Sodium Level 142 mmol/L (137-145) Potassium Level 3.9 mmol/L (3.5-5.0) Chloride Level 102 mmol/L (98-107) Carbon Dioxide Level 31 mmol/L (22-31) Blood Urea Nitrogen 21 mg/dl (7-18) Creatinine 0.70 mg/dl (0.52-1.04) Glomerular Filtration Rate Calc > 60.0 Random Glucose 118 mg/dl (75-110) Calcium Level 9.2 mg/dl (8.4-10.2) Total Bilirubin 0.9 mg/dl (0.2-1.3) Aspartate Amino Transf (AST/SGOT) 34 U/L (0-35) Alanine Aminotransferase (ALT/SGPT) 28 U/L (0-56) Alkaline Phosphatase 68 U/L (0-126) Total Protein 7.3 g/dl (6.3-8.2) Albumin 3.8 g/dl (3.5-5.0) Chemistry Test 07/22/18 10:50 07/22/18 10:58 Urine Color Yellow Urine Clarity Clear Urine pH 5.0 pH (4.8-9.5) Urine Specific Grethel 1.024 Urine Protein Negative mg/dL (NEGATIVE) Urine Glucose (UA) Negative mg/dL (NEGATIVE) Urine Ketones Trace mg/dL (NEGATIVE) Urine Blood Negative (NEGATIVE) Urine Nitrite Negative (NEGATIVE) Urine Bilirubin Negative (NEGATIVE) Urine Urobilinogen 2.0 mg/dL (0.2-1.9) Urine Leukocyte Esterase Negative (NEGATIVE) Urine RBC None /HPF (0-2/HPF) Urine WBC <1 /HPF (0-5/HPF) Urine Squamous Epithelial Cells Few /LPF (</=FEW) Urine Bacteria Few /HPF (NONE-FEW) Urine Mucus None /HPF (NONE-FEW) White Blood Count 7.4 k/uL (4.5-11.0) Red Blood Count 5.43 M/uL (4.17-5.56) Hemoglobin 16.2 g/dL (12.0-16.0) Hematocrit 48.8 % (34.0-47.0) Mean Corpuscular Volume 90.0 fL (80.0-96.0) Mean Corpuscular Hemoglobin 29.8 pg (26.0-33.0) Mean Corpuscular Hemoglobin Concent 33.2 g/dL (32.0-36.0) Red Cell Distribution Width 13.4 % (11.5-14.5) Platelet Count 190 K/uL (150-450) Mean Platelet Volume 9.4 fL (7.2-11.1) Neutrophils (%) (Auto) 80.1 % (39.4-72.5) Lymphocytes (%) (Auto) 10.5 % (17.6-49.6) Monocytes (%) (Auto) 7.2 % (4.1-12.4) Eosinophils (%) (Auto) 1.8 % (0.4-6.7) Basophils (%) (Auto) 0.4 % (0.3-1.4) Nucleated RBC Relative Count (auto) 0.0 /100WBC Neutrophils # (Auto) 5.9 K/uL (2.0-7.4) Lymphocytes # (Auto) 0.8 K/uL (1.3-3.6) Monocytes # (Auto) 0.5 K/uL (0.3-1.0) Eosinophils # (Auto) 0.1 K/uL (0.0-0.5) Basophils # (Auto) 0.0 K/uL (0.0-0.1) Nucleated RBC Absolute Count (auto) 0.00 K/uL Glomerular Filtration Rate Calc > 60.0 Calcium Level 9.2 mg/dl (8.4-10.2) Total Bilirubin 0.9 mg/dl (0.2-1.3) Aspartate Amino Transf (AST/SGOT) 34 U/L (0-35) Alanine Aminotransferase (ALT/SGPT) 28 U/L (0-56) Alkaline Phosphatase 68 U/L (0-126) Total Protein 7.3 g/dl (6.3-8.2) Albumin 3.8 g/dl (3.5-5.0) Urinalysis Test 07/22/18 10:50 Urine Color Yellow Urine Clarity Clear Urine pH 5.0 pH (4.8-9.5) Urine Specific [place] 1.024 Urine Protein Negative mg/dL (NEGATIVE) Urine Glucose (UA) Negative mg/dL (NEGATIVE) Urine Ketones Trace mg/dL (NEGATIVE) Urine Blood Negative (NEGATIVE) Urine Nitrite Negative (NEGATIVE) Urine Bilirubin Negative (NEGATIVE) Urine Urobilinogen 2.0 mg/dL (0.2-1.9) Urine Leukocyte Esterase Negative (NEGATIVE) Urine RBC None /HPF (0-2/HPF) Urine WBC <1 /HPF (0-5/HPF) Urine Squamous Epithelial Cells Few /LPF (</=FEW) Urine Bacteria Few /HPF (NONE-FEW) Urine Mucus None /HPF (NONE-FEW) ED Course/Re-evaluation ED Course Pain improves with fentanyl; I consulted Dr. Falk who defers admission to hospitalist. Dr. Sanchez agrees to observation admission for pain control and recommend consideration of rehab assessment Decision to Disposition Date: Jul 22, 2018 Decision to Disposition Time: 11:28 Depart Departure Latest Vital Signs Vital Signs Date Time Temp Pulse Resp B/P (MAP) Pulse Ox O2 Delivery O2 Flow Rate FiO2 07/22/18 10:47 70 91 07/22/18 10:32 Nasal Cannula 4 07/22/18 10:30 118/63 (81) 07/22/18 09:09 98.3 16 Impression: Primary Impression: T12 vertebral fracture Condition: Improved Disposition: Admitted from ER (observation for pain control, ADL's) Referrals: COLEMAN DAVIDSON MD (PCP) Problem Qualifiers Primary Impression: T12 vertebral fracture Encounter type: subsequent encounter Fracture type: closed Fracture morphology: other fracture Fracture healing: with routine healing Qualified Codes: S22.088D - Other fracture of t11-T12 vertebra, subsequent encounter for fracture with routine healing ZAID CONNELL MD Jul 22, 2018 11:26
[2018-07-22 12:26] VITALS: BP 152/74
--- NOTE | 2018-07-22 12:57 | History & Physical ---
History of Present Illness Chief Complaint Back Pain History of Present Illness She is a 73-year-old female who presented to the emergency department with back pain after a fall 07/19. She was seen 07/21 in the ED and diagnosed with chance fracture T12; she was sent home with TLSO brace, hydrocodone and flexeril. However, despite this treatment she was not tolerating the pain at home and came back today. She has complaints of decreased appetite secondary to pain. Her , who has ongoing back pain, is unable to significantly help her. She does not have home health care. She has no new numbness or weakness. She denies chest pain or SOB. She was recommended for admission for pain control, physical therapy. History Problems: (1) Hypothyroidism Status: Chronic (2) Depression with anxiety Status: Chronic (3) Benign hypertension Status: Chronic (4) Abnormal esophagram Status: Chronic Home Meds Active Scripts Hydrocodone Bit/Acetaminophen (HYDROCODON-ACETAMINOPHEN 5-325) 1 Each Tablet, 1 EACH PO Q4-6H PRN for PAIN, #20 TAB Prov:CLAYTON JORGENSEN WAVE GUIDE ASSEMBLER 07/21/18 Cyclobenzaprine Hcl (CYCLOBENZAPRINE HCL) 10 Mg Tablet, 10 MG PO TID PRN for MUSCLE SPASMS, #21 TAB Prov:CLAYTON JORGENSEN 07/21/18 Pantoprazole Sodium (PANTOPRAZOLE SODIUM) 40 Mg Tablet.dr, 40 MG PO QDAY, #30 TAB.SR 3 Refills Prov:COLEMAN DAVIDSON MD 05/29/18 Sertraline Hcl (ZOLOFT) 100 Mg Tablet, 1 TAB PO QDAY, #90 TAB 4 Refills Prov:COLEMAN DAVIDSON MD 11/28/17 Ramipril (RAMIPRIL) 10 Mg Capsule, 1 CAP PO QDAY, #90 CAPSULE 3 Refills Prov:COLEMAN DAVIDSON MD 11/28/17 Levothyroxine Sodium (LEVOTHYROXINE SODIUM) 137 Mcg Tablet, 1 TAB PO QDAY, #90 TAB 3 Refills Prov:COLEMAN DAVIDSON MD 11/28/17 Reported Medications Multivitamin (MULTIVITAMINS) Unknown Strength Tablet, PO 05/15/17 Oxygen (OXYGEN) Unknown Strength Inha, INH QHS, L 05/15/17 Calcium Carbonate (CALCIUM) 600 Mg Tablet, 1200 MG PO QHS 05/15/17 Discontinued Scripts Fluticasone Prop 50 Mcg Ns (FLONASE 50 MCG NS) 16 Gm [place].susp, 2 SPRAYS NS QD AY, #1 BOT 3 Refills Prov:COLEMAN DAVIDSON MD 05/29/18 Allergies: Coded Allergies: No Known Drug Allergies (Verified , 07/22/18) Patient History: FH: diabetes mellitus MOTHER, , Age:63 Hx Smoking: No Smoking Status: Never Smoker Exposure to Second Hand Smoke?: Yes () Caffeine Intake: Soda Caffeine/Cups Per Day: 2 DIET SODAS DAILY Hx Alcohol Use: No Hx Substance Use Disorder: No Social Drug Use: Never Review of Systems All Systems Reviewed/Normal: Yes, Except as Noted Musculoskeletal: Pain (mid back ) Exam Vital Signs Vital Signs Date Time Temp Pulse Resp B/P (MAP) Pulse Ox O2 Delivery O2 Flow Rate FiO2 07/22/18 11:52 62 93 Nasal Cannula 4 07/22/18 11:30 131/71 (91) 07/22/18 09:09 98.3 16 General Appearance: Alert, Awake, No Acute Distress, Afebrile Neuro: No Gross deficits Cardiovascular: Regular Rate and Rhythm Respiratory: No Respiratory Distress, Clear to Auscultation Extremities: Warm, Perfused; No Edema Psych: Alert & Oriented X3, Appropriate Mood & Affect Medical Decision Making Data Points Result Diagram: 07/22/18 1058 07/22/18 1058 EKG / Imaging Imaging PATIENT NAME: Aury Chan : 1945 MR: [id number] V: [id number] EXAM DATE: ORDERING PHYSICIAN: CLAYTON JORGENSEN TECHNOLOGIST: Location: [facility] - [place] Patient: Aury Chan : 1945 Visit/Account:[id number] Date of Sevice: 07/21/2018 T-SPINE W/O CONTRAST COMPARISONS: Fall. ADDITIONAL PERTINENT HISTORY: Fall hitting head. TECHNIQUE: Multiple axial images were obtained through the thoracic spine. Coronal and sagittal reformatted images obtained off the axial source data. No IV contrast was used for the exam. One of the following dose optimization techniques was utilized in the performance of this exam: Automated exposure control; adjustment of the mA and/or kV according to the patient's size; or use of an iterative reconstruction technique. Specific details can be referenced in the facility's radiology CT exam operational policy. FINDINGS: Vertebral body heights and alignment: Mild increase in kyphosis. Vertebral bodies: 3 column fracture compatible with a Chance fracture at the level of T12.. Facet hypertrophic changes at multiple levels. Thin syndesmop hytes along the anterior aspects of the S2 bodies as well as along the posterior aspects of the vertebral bodies raising the concern for underlying ankylosing spondylitis. Disc spaces: Negative. Cervical thoracic junction: Negative. Surrounding soft tissues and visualized lung parenchyma: Regions of scarring involving both hemithoraces. Mild atherosclerotic disease of the thoracic aortic arch. Well-circumscribed lesion measuring 2.0 cm involving the left adrenal gland with average Hounsfield units of -1 compatible with an underlying adenoma.. IMPRESSION: 1. Superimposed upon findings concerning for ankylosing spondylitis are findings of a 3 column fracture compatible with underlying chance fracture at the level of T12. Results were discussed with CLAYTON JORGENSEN at 07/21/2018 1:58 PM. Report Dictated By: Yosi Nguyen MD at 07/21/2018 1:49 PM Report E-Signed By: Yosi Nguyen MD at 07/21/2018 1:58 PM PATIENT NAME: Aury Chan : 1945 MR: [id number] V: [id number] EXAM DATE: ORDERING PHYSICIAN: CLAYTON JORGENSEN TECHNOLOGIST: Location: [facility] [place] Patient: Aury Chan : 1945 Visit/Account:[id number] Date of Sevice: 07/21/[address] scan without contrast COMPARISONS: Head CT dated November 01, 2014 ADDITIONAL PERTINENT HISTORY: Fall, hitting head. TECHNIQUE: Multiple axial images were obtained from the skull base to the vertex without IV contrast. One of the following dose optimization techniques was utilized in the performance of this exam: Automated exposure control; adju stment of the mA and/or kV according to the patient's size; or use of an iterative reconstruction technique. Specific details can be referenced in the facility's radiology CT exam operational policy. FINDINGS: Midline shift: Negative Ventricles: Negative Brain parenchyma: Region of encephalomalacia involving the right parietal lobe compatible with a remote area of infarct. Mild patchy hypoattenuation within the periventricular and subcortical white matter, nonspecific but likely repr esenting small vessel ischemic change on a chronic basis. These findings are stable when compared to previous exam. Extra-axial spaces: Mild cerebral atrophy. Intracranial vasculature: Cavernous internal carotid and distal vertebral artery calcifications. Otherwise negative Osseous structures: Negative Paranasal sinuses and mastoid air cells: Negative Surrounding soft tissues and orbits: Negative IMPRESSION: 1. 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 Stable from previous exam. 2. No acute intracranial pathology. Report Dictated By: Yosi Nguyen MD at 07/21/2018 1:33 PM Report E-Signed By: Yosi Nguyen MD at 07/21/2018 1:40 PM PATIENT NAME: Aury Chan : 1945 MR: [id number] V: [id number] EXAM DATE: ORDERING PHYSICIAN: CLAYTON JORGENSEN TECHNOLOGIST: Location: [facility] [place] Patient: Aury Chan : 1945 Visit/Account:[id number] Date of Sevice: 07/21/2018 C-SPINE W/O CONTRAST COMPARISONS: None. ADDITIONAL PERTINENT HISTORY: Fall TECHNIQUE: Multiple axial images were obtained from the skull base through the upper thoracic spine with coronal and sagittal reformatted images obtained without IV contrast. One of the following dose optimization techniques was u tilized in the performance of this exam: Automated exposure control; adjustment of the mA and/or kV according to the patient's size; or use of an iterative reconstruction technique. Specific details can be referenced in the facility's radiology CT exam operational policy. FINDINGS. Vertebral body heights and alignment: Negative. Vertebral bodies: Anteriorly and posteriorly directed osteophytes at multiple levels. No bony fractures. Disc spaces: Mild disc space narrowing at multiple levels. No appreciable canal stenosis. Cranial cervical junction: Negative. Cervical thoracic junction: Negative. Surrounding soft tissues: Negative Lung apices: Scarring involving both lung apices. IMPRESSION: 1. Spondylitic change involving the cervical spine. 2. No acute appearing bony abnormalities. Report Dictated By: Yosi Nguyen MD at 07/21/2018 1:40 PM Report E-Signed By: Yosi Nguyen MD at 07/21/2018 1:44 PM Assessment and Plan Problems: (1) T12 vertebral fracture Status: Acute Assessment & Plan: She was admitted with Chance fracture of T12 after fall. She will keep brace in place, receive pain medications and PT/OT. Dr. Badillo saw this patient in ER 07/21 and recommended brace at all times, except for showering. (2) Benign hypertension Status: Chronic Assessment & Plan: She is on chronic treatment with Ramipril. This has been restarted with hold parameters. (3) Hypothyroidism Status: Chronic Assessment & Plan: She is on chronic treatment with Levothyroxine. (4) Depression with anxiety Status: Chronic Assessment & Plan: She is on chronic treatment with Sertraline. (5) Abnormal esophagram Status: Chronic Assessment & Plan: She is on chronic treatment with Protonix. Venous Thromboembolism Antithrombotics Is Pt On Any Antithrombotics?: Yes Exam Sepsis Risk: No Definite Risk Problem Qualifiers (1) T12 vertebral fracture: Encounter type: subsequent encounter Fracture type: closed Fracture morphology: other fracture Fracture healing: with routine healing Qualified Codes: S22.088D - Other fracture of t11-T12 vertebra, subsequent encounter for fracture with routine healing WOOD ALAS WAVE GUIDE ASSEMBLER Jul 22, 2018 12:57
[2018-07-22] MEDS: IBUPROFEN 600 MG TAB PO PRN ×2 (13:12→20:47)
[2018-07-22] MEDS: CYCLOBENZAPRINE HCL 10 MG TAB PO PRN ×2 (13:13→22:52)
[2018-07-22] MEDS: APAP/HYDROCODONE 325/5 TAB PO PRN ×2 (13:14→17:09)
[2018-07-22] MEDS ORDERED: LIDOCAINE 5% PATCH TP ONE (17:05)
[2018-07-22 17:21] VITALS: BP 137/82
[2018-07-22 19:27] VITALS: BP 114/64
[2018-07-22] MEDS: PATCH REMOVAL 1 EA TP SCH (20:47)
[2018-07-22 22:53] VITALS: BP 122/63
[2018-07-23] MEDS: APAP/HYDROCODONE 325/5 TAB PO PRN ×4 (03:29→16:30)
[2018-07-23 03:30] VITALS: BP 101/61
[2018-07-23] MEDS: IBUPROFEN 600 MG TAB PO PRN ×2 (05:52→12:21)
[2018-07-23] MEDS: LEVOTHYROXINE SOD 0.137 MG TAB PO SCH (05:52)
[2018-07-23 07:39] VITALS: BP 128/67
[2018-07-23] MEDS: ENOXAPARIN 40 MG/0.4ML SYR SC SCH (08:24)
[2018-07-23] MEDS: LIDOCAINE 5% PATCH TP SCH (08:24)
[2018-07-23] MEDS: CYCLOBENZAPRINE HCL 10 MG TAB PO PRN ×2 (08:24→16:30)
[2018-07-23] MEDS: PANTOPRAZOLE SOD 40 MG TABEC PO SCH (08:24)
[2018-07-23] MEDS: SERTRALINE HCL 50 MG TAB PO SCH (08:25)
[2018-07-23] MEDS: RAMIPRIL 2.5 MG CAP PO SCH (08:27)
--- NOTE | 2018-07-23 09:00 | Hospitalist Progress Note ---
Subjective Progress Notes Subjective She appears to be making progress with the brace and work with PT. She reports a little improvement in pain this morning. Patient Complains of: Cardiovascular: No: Chest Pain Respiratory: No: Shortness of Breath Physical Exam Vital Signs Date Time Temp Pulse Resp B/P (MAP) Pulse Ox O2 Delivery O2 Flow Rate FiO2 07/23/18 08:00 81 07/23/18 07:39 98.4 51 18 128/67 (87) Nasal Cannula 2.5 Intake and Output 07/23/18 00:59 Intake Total 340 ml Balance 340 ml Intake Oral 340 ml General Appearance: Alert, Awake, No Acute Distress, Afebrile Neuro: No Gross deficits Cardiovascular: Regular Rate and Rhythm Respiratory: No Respiratory Distress, Clear to Auscultation GI: Soft and Non-Tender Psych: Alert & Oriented X3, Appropriate Mood & Affect Result Diagram: 07/22/18 1058 07/22/18 1058 Assessment and Plan Problems: (1) T12 vertebral fracture Status: Acute Assessment & Plan: She was admitted with Chance fracture of T12 after fall. She will keep brace in place, receive pain medications and PT/OT. Dr. Badillo saw this patient in ER 07/21 and recommended brace at all times, except for showering. Encouraged IS, as she is not taking in deep breaths with the brace in place. (2) Benign hypertension Status: Chronic Assessment & Plan: She is on chronic treatment with Ramipril. This has been restarted with hold parameters. (3) Hypothyroidism Status: Chronic Assessment & Plan: She is on chronic treatment with Levothyroxine. (4) Depression with anxiety Status: Chronic Assessment & Plan: She is on chronic treatment with Sertraline. (5) Abnormal esophagram Status: Chronic Assessment & Plan: She is on chronic treatment with Protonix. Exam Sepsis Risk: No Definite Risk Problem Qualifiers (1) T12 vertebral fracture: Encounter type: subsequent encounter Fracture type: closed Fracture morphology: other fracture Fracture healing: with routine healing Qualified Codes: S22.088D - Other fracture of t11-T12 vertebra, subsequent encounter for fracture with routine healing WOOD ALAS Jul 23, 2018 09:00
[2018-07-23 12:14] VITALS: BP 143/68
[2018-07-23 15:09] VITALS: BP 134/68
[2018-07-23 15:44] VITALS: Ht 154.9 cm; Wt 69.4 kg
[2018-07-23] MEDS ORDERED: MAGNESIUM HYDROXIDE* 30ML UDCP PO PRN (16:10)
[2018-07-23 20:43] VITALS: BP 139/79
[2018-07-23] MEDS: PATCH REMOVAL 1 EA TP SCH (21:00)
[2018-07-23] MEDS: DOCUSATE SODIUM 100 MG CAP PO SCH (21:20)
[2018-07-23 23:33] VITALS: BP 126/79
[2018-07-23] MEDS ORDERED: LEVALBUTEROL 0.63 MG/3 ML NEB NEB PRN (23:50)
[2018-07-24 03:36] VITALS: BP 130/71
[2018-07-24] MEDS: LEVOTHYROXINE SOD 0.137 MG TAB PO SCH (05:29)
[2018-07-24 07:47] VITALS: BP 142/93
[2018-07-24] MEDS: SERTRALINE HCL 50 MG TAB PO SCH (08:24)
[2018-07-24] MEDS: POLYETHYLENE GLYCOL 17 GM PKT PO SCH (08:24)
[2018-07-24] MEDS: PANTOPRAZOLE SOD 40 MG TABEC PO SCH (08:24)
[2018-07-24] MEDS: ENOXAPARIN 40 MG/0.4ML SYR SC SCH (08:24)
[2018-07-24] MEDS: DOCUSATE SODIUM 100 MG CAP PO SCH ×2 (08:24→21:25)
[2018-07-24] MEDS: RAMIPRIL 2.5 MG CAP PO SCH (08:24)
[2018-07-24] MEDS: LIDOCAINE 5% PATCH TP SCH (08:26)
[2018-07-24] MEDS: CYCLOBENZAPRINE HCL 10 MG TAB PO PRN (09:59)
--- NOTE | 2018-07-24 10:14 | RADIOLOGY IMAGING REPORT ---
FACILITY: [facility] PATIENT NAME: Aury Chan : 1945 MR: [id number] V: [id number] EXAM DATE: ORDERING PHYSICIAN: WOOD ALAS TECHNOLOGIST: Location: [facility] [place] Patient: Aury Chan : 1945 Visit/Account:[id number] Date of Sevice: 07/24/2018 EXAMINATION: PA and Lateral Chest 07/24/2018 9:08 AM HISTORY: Shortness of breath, cough COMPARISON: 11/06/2017 FINDINGS: Cardiomediastinal contours: Cardiomegaly. Aorta is mildly atherosclerotic with a tortuous appearance accentuated by rightward rotation of the patient on the final film. Lungs and pleura: Increased markings in both lower lung lay with what may be some fluid along the fissure on the right although no substantial blunting of the costophrenic angles on the lateral. Pul monary vasculature is mildly prominent but without overt parenchymal edema. Bones/soft tissues: Accentuated thoracolumbar kyphotic curvature. IMPRESSION: 1. Bibasilar pulmonary markings asymmetric on the left suspicious for infiltrate rather than simply atelectasis. 2. Cardiac megaly with vascular engorgement without overt pulmonary edema/CHF. Report Dictated By: Eric Lacy MD at 07/24/2018 10:07 AM Report E-Signed By: Eric Lacy MD at 07/24/2018 10:10 AM WSN:[id number]
[2018-07-24 10:34] LABS: PLATELET COUNT, AUTOMATED 182 K/uL (150-450)
[2018-07-24] MEDS ORDERED: ALBUTEROL/IPRATROPIUM 3 ML NEB NEB PRN (11:10)
[2018-07-24 11:37] VITALS: BP 158/84
[2018-07-24] MEDS ORDERED: INFLUENZA VIRUS VAC 0.5ML SYR IM ONLY ONE (12:10)
--- NOTE | 2018-07-24 12:20 | Hospitalist Progress Note ---
Subjective Progress Notes Subjective She has complaints of shortness of breath and cough this morning. She denies fever or chills. Patient Complains of: Cardiovascular: No: Chest Pain Respiratory: Cough, Shortness of Breath Physical Exam Vital Signs Date Time Temp Pulse Resp B/P (MAP) Pulse Ox O2 Delivery O2 Flow Rate FiO2 07/24/18 11:37 98.5 75 20 158/84 (108) 91 3.0 07/24/18 08:41 Nasal Cannula Intake and Output 07/24/18 00:59 Intake Total 444 ml Balance 444 ml Intake Oral 444 ml # Voids 6 General Appearance: Alert, Awake, No Acute Distress, Afebrile Neuro: No Gross deficits Cardiovascular: Regular Rate and Rhythm Respiratory: No Respiratory Distress, Clear to Auscultation GI: Soft and Non-Tender Psych: Alert & Oriented X3, Appropriate Mood & Affect Result Diagram: 07/24/18 1029 07/24/18 1029 Assessment and Plan Problems: (1) T12 vertebral fracture Status: Acute Assessment & Plan: She was admitted with Chance fracture of T12 after fall. She will keep brace in place, receive pain medications and PT/OT. Dr. Badillo saw this patient in ER 07/21 and recommended brace at all times, except for showering. Encouraged IS, as she is not taking in deep breaths with the brace in place. (2) Hypoxia Status: Acute Assessment & Plan: She has complaints of shortness of breath and has increased oxygen demand this morning. She had chest x-ray, which suggests possible beginning pneumonia or atelectasis. She will be placed on nebulizers and Mucinex. She doesn't have fever or WBC today. Continue to monitor. (3) Benign hypertension Status: Chronic Assessment & Plan: She is on chronic treatment with Ramipril. This has been restarted with hold parameters. (4) Hypothyroidism Status: Chronic Assessment & Plan: She is on chronic treatment with Levothyroxine. (5) Depression with anxiety Status: Chronic Assessment & Plan: She is on chronic treatment with Sertraline. (6) Abnormal esophagram Status: Chronic Assessment & Plan: She is on chronic treatment with Protonix. Exam Sepsis Risk: No Definite Risk Problem Qualifiers (1) T12 vertebral fracture: Encounter type: subsequent encounter Fracture type: closed Fracture morphology: other fracture Fracture healing: with routine healing Qualified Codes: S22.088D - Other fracture of t11-T12 vertebra, subsequent encounter for fracture with routine healing WOOD ALAS CLOUD AUTOMATION TESTER Jul 24, 2018 12:20
[2018-07-24] MEDS: guaiFENesin 600 MG TABCR PO SCH ×2 (12:46→21:25)
[2018-07-24] MEDS: IBUPROFEN 600 MG TAB PO PRN (14:13)
[2018-07-24] MEDS: APAP/HYDROCODONE 325/5 TAB PO PRN (14:13)
[2018-07-24 15:08] VITALS: BP 155/73
--- NOTE | 2018-07-24 16:48 | Medical Nutrition Therapy ---
Nutrition Anthropometrics Height (Inches): 61.00 Height (Calculated Centimeters: 154.691814 Weight (Pounds): 153 Weight (Calculated Kilograms): 69.400 BMI: 28.9 Brent Nutrition Score: Adequate Brent Nutrition Risk Score: 18 Dietary Referral Nutrition Risk Factors: Diff. Swallowing Nutrition Risk Comment: Frequent couging w/ meals, planned esophageal dilation Physical Findings Physical Appearance: Overweight BMI 25-29 Skin Appearance Skin Appearance: Edema Edema Location Modifier: Edema Location: Type of Edema: Degree of Edema: Gastrointestinal Symptoms GI Symtoms: Tube Present: Bowel Sounds: Recent Bowel Pattern: Stool Characteristics: Nutritional Diagnosis Nutritional Risk Acuity 2: Swallowing Problem Nutritional Risk Acuity 4: Good Appetite Nutritional Acuity: 2-Moderate Nutrition Diagnosis: Swallowing Difficulties Nutrition Etiology: Physiological Causes Nutrition Problem/Etiology/Sym: AEB planned espophgial dialation Energy Requirement: 1725 (25kc/kg) Protein Requirement: 69 Fluid Requirement: 1725 Diet Type: Diet as Tolerated ANA CRISTINA/REG Nutrition Intervention: Cont diet as ordered, Encourage intake Nutrition Monitoring & Eval Nutrition Goals: Eat 75-100% Meal RD Patient Assessment Time: [address] Assessment Type: RD Assessment Patient Nutrition Acuity: 2-Moderate Follow Up Date: Jul 29, 2018 Nutritional Comment: 07/23 Pt admitted s/p T12 vertebral fx. Alb 3.8. Pt reporting swallowing issue and is planning esophgial dilation. Will talk with pt to optain foods best tolerated. Pt on regular diet and eating 75-100%. will cont to monitor. 07/24 Pt states having no problems with food. is ordering foods that she can swallow and eating 100% RICCI THOMSON Jul 24, 2018 16:47
[2018-07-24 19:58] VITALS: BP 115/59
[2018-07-24] MEDS: PATCH REMOVAL 1 EA TP SCH (21:00)
[2018-07-25] MEDS: APAP/HYDROCODONE 325/5 TAB PO PRN (00:06)
[2018-07-25 00:10] VITALS: BP 167/74
[2018-07-25 03:15] VITALS: BP 122/65
[2018-07-25] MEDS: LEVOTHYROXINE SOD 0.137 MG TAB PO SCH (05:23)
[2018-07-25 08:14] VITALS: BP 137/76
[2018-07-25 08:22] LABS: PLATELET COUNT, AUTOMATED 176 K/uL (150-450)
[2018-07-25] MEDS ORDERED: IBUP600T22 PO (09:11)
[2018-07-25] MEDS ORDERED: GUAI600T57 PO (09:11)
[2018-07-25] MEDS ORDERED: LEVA15HF IH (09:11)
[2018-07-25] MEDS: LIDOCAINE 5% PATCH TP SCH (09:22)
--- NOTE | 2018-07-25 09:22 | Hospitalist Depart ---
Discharge Summary Reason for Hosp/Final Diag: (1) T12 vertebral fracture Status: Acute Hospital Course & Plan: She was admitted with Chance fracture of T12 after fall. She worked with PT/OT, she will keep brace in place, continue pain medications. Dr. Badillo saw this patient in ER 07/21 and recommended brace at all times, except for showering. Encouraged IS, as she is not taking in deep breaths with the brace in place. (2) Hypoxia Status: Acute Hospital Course & Plan: She had complaints of shortness of breath 07/24. She had chest x-ray, which suggests possible pneumonia or atelectasis. She did not have fever or WBC, and symptoms improved with nebulizers and Mucinex. She will continue IS and flutter therapy at home. She will follow up with Dr. Turner. She will be placed on oxygen at all times, instead of just night time. (3) Benign hypertension Status: Chronic Hospital Course & Plan: She is on chronic treatment with Ramipril. This has been restarted with hold parameters. (4) Hypothyroidism Status: Chronic Hospital Course & Plan: She is on chronic treatment with Levothyroxine. (5) Depression with anxiety Status: Chronic Hospital Course & Plan: She is on chronic treatment with Sertraline. (6) Abnormal esophagram Status: Chronic Hospital Course & Plan: She is on chronic treatment with Protonix. Departure Latest Vital Signs Vital Signs 07/25/18 08:14 Temp 98.3 Pulse 71 Resp 18 B/P (MAP) 137/76 (96) Pulse Ox 81 O2 Delivery Nasal Cannula O2 Flow Rate 3.0 Weight (Pounds): 153 Result Diagram: 07/25/1881307/25/18813 Condition: Improved Discharge: Home, Home Health Discharge Instructions Home Meds Active Scripts Levalbuterol Tartrate (XOPENEX HFA) 15 Gm Hfa.aer.ad, 15 GM IH Q4H PRN for SHORTNESS OF BREATH, #1 INH Prov:WOOD ALAS COACH MECHANIC 07/25/18 Ibuprofen (IBUPROFEN) 600 Mg Tablet, 600 MG PO Q6H PRN for PAIN, #60 TAB Prov:WOOD ALAS COACH MECHANIC 07/25/18 Guaifenesin (MUCINEX) 600 Mg Tablet.er, 600 MG PO BID, #60 TAB Prov:WOOD ALAS COACH MECHANIC 07/25/18 Hydrocodone Bit/Acetaminophen (HYDROCODON-ACETAMINOPHEN 5-325) 1 Each Tablet, 1 EACH PO Q4-6H PRN for PAIN, #20 TAB Prov:CLAYTON JORGENSEN COACH MECHANIC 07/21/18 Cyclobenzaprine Hcl (CYCLOBENZAPRINE HCL) 10 Mg Tablet, 10 MG PO TID PRN for MUSCLE SPASMS, #21 TAB Prov:CLAYTON JORGENSEN COACH MECHANIC 07/21/18 Pantoprazole Sodium (PANTOPRAZOLE SODIUM) 40 Mg Tablet.dr, 40 MG PO QDAY, #30 TAB.SR 3 Refills Prov:COLEMAN TURNER MD 05/29/18 Sertraline Hcl (ZOLOFT) 100 Mg Tablet, 1 TAB PO QDAY, #90 TAB 4 Refills Prov:COLEMAN TURNER MD 11/28/17 Ramipril (RAMIPRIL) 10 Mg Capsule, 1 CAP PO QDAY, #90 CAPSULE 3 Refills Prov:COLEMAN TURNER MD 11/28/17 Levothyroxine Sodium (LEVOTHYROXINE SODIUM) 137 Mcg Tablet, 1 TAB PO QDAY, #90 TAB 3 Refills Prov:COLEMAN TURNER MD 11/28/17 Reported Medications Multivitamin (MULTIVITAMINS) Unknown Strength Tablet, PO 05/15/17 Oxygen (OXYGEN) Unknown Strength Inha, 3 L INH QDAY, #3 L 05/15/17 Calcium Carbonate (CALCIUM) 600 Mg Tablet, 1200 MG PO QHS 05/15/17 Diet: Regular Activity: As Tolerated Copies to: COLEMAN TURNER MD ; Venous Thromboembolism Antithrombotics Is Pt On Any Antithrombotics?: Yes [id number] Certification Face to Face Home Health Certification Institutional Provider conducted the [id number] encounter. Electronic Undersigning Physician Certifies Home Health. I certify that the patient has been under my care and that I had a [id number] encounter that meets the physician [id number] encounter requirements with this patient. This patient is home-bound due to safety issues and continues to require assistance with ADL's. I certify that based on my findings, that Nursing, Aides and the following Home Health services are medically necessary. Medical Necessity: Nursing, Rehab Date Face to Face Conducted: Jul 25, 2018 Problem Qualifiers (1) T12 vertebral fracture: Encounter type: subsequent encounter Fracture type: closed Fracture morphology: other fracture Fracture healing: with routine healing Qualified Codes: S22.088D - Other fracture of t11-T12 vertebra, subsequent encounter for fracture with routine healing WOOD ALAS COACH MECHANIC Jul 25, 2018 09:22
[2018-07-25] MEDS: guaiFENesin 600 MG TABCR PO SCH (09:24)
[2018-07-25] MEDS: ENOXAPARIN 40 MG/0.4ML SYR SC SCH (09:24)
[2018-07-25] MEDS: POLYETHYLENE GLYCOL 17 GM PKT PO SCH (09:24)
[2018-07-25] MEDS: DOCUSATE SODIUM 100 MG CAP PO SCH (09:25)
[2018-07-25] MEDS: RAMIPRIL 2.5 MG CAP PO SCH (09:25)
[2018-07-25] MEDS: PANTOPRAZOLE SOD 40 MG TABEC PO SCH (09:25)
[2018-07-25] MEDS: SERTRALINE HCL 50 MG TAB PO SCH (09:25)
[2018-07-30] MEDS ORDERED: GABA-547 PO ×2 (10:45→10:49)
[2018-07-30] MEDS ORDERED: MELO-207 PO (10:45)
[2018-07-30] MEDS ORDERED: OXYC-869 PO (10:45)
== END 2018-07-25 09:11 | disposition home health service (06) ==
LOC: ER 09:31 → MED 11:41 → INTOOBSV 11:41
PROVIDERS: ADMIT Internal Medicine; ATTEND Internal Medicine
DX: S22.088D Other fracture of T11-T12 vertebra, subsequent encounter for fracture with routine healing (principal); I10 Essential (primary) hypertension; E03.9 Hypothyroidism, unspecified; F41.9 Anxiety disorder, unspecified; F32.9 Major depressive disorder, single episode, unspecified; R06.02 Shortness of breath; R05 Cough
CPT/HCPCS: 36415; 71046; 81001; 85025; 94640; 94667; 96372; 96374; 97116; 97162; 97165; 97530; 97760; 99284; A9270; G0378; J1650; J3010; J7030; J7614; 82040; 82247; 82310; 82374; 82435; 82565; 82947; 84075; 84132; 84155; 84295; 84450; 84460; 84520

== ENCOUNTER 2018-07-27 23:57 | Emergency (ER) | payer MEDICARE, BC ==
[2018-07-23 15:44] VITALS: Wt 70.3 kg
[~2018-07-27 23:57] MED LIST changes: -DOCU-202 PO; -GABA-547 PO; -HYDR-4225 PO; -LOR5/325 PO; -MELO-207 PO; -OXYC-869 PO
[2018-07-28] VITALS: BP 153/87
--- NOTE | 2018-07-28 00:19 | ER Report ---
History and Physical Time Seen By : 00:19 Hx. of Stated Complaint: UNCONTROLLED BACK PAIN HPI/ROS CHIEF COMPLAINT: Back pain from T12 fracture HISTORY OF PRESENT ILLNESS: This is a 73-year-old female. [facility] She was having uncontrolled back pain home. This is completel y improved with 2 doses of 50 g of IV fentanyl. On further questioning, it sounds like they're only using a couple of doses of ibuprofen and a couple of doses of Lortab home. Also 2 doses of cyclobenzaprine. She is a week out from her fracture. She is having irritation from the large brace that she is supposed to be using and so right now is only using a thin wraparound brace attached with Velcro. She does feel a little jittery, but hasn't been sleeping well and not eating well. She is going to the bathroom about 4 times a day without dysuria but because of pain is not making it to the bathroom so having some incontinence because of this. Sounds like there is concern because a family member in the past having addiction to pain medicine so they have not been using the pain medicines at the level they probably should to control the pain. Allergies: Coded Allergies: No Known Drug Allergies (Verified , 07/28/18) Home Meds Active Scripts Hydroxyzine Hcl (HYDROXYZINE HCL) 25 Mg Tablet, 25 MG PO QHS, #20 TAB 0 Refills Prov:ANH HUTTON MD 07/28/18 Levalbuterol Tartrate (XOPENEX HFA) 15 Gm Hfa.aer.ad, 15 GM IH Q4H PRN for SHORTNESS OF BREATH, #1 INH Prov:WOOD ALAS [facility] 07/25/18 Ibuprofen (IBUPROFEN) 600 Mg Tablet, 600 MG PO Q6H PRN for PAIN, #60 TAB Prov:WOOD ALAS [facility] 07/25/18 Guaifenesin (MUCINEX) 600 Mg Tablet.er, 600 MG PO BID, #60 TAB Prov:WOOD ALAS [facility] 07/25/18 Hydrocodone Bit/Acetaminophen (HYDROCODON-ACETAMINOPHEN 5-325) 1 Each Tablet, 1 EACH PO Q4-6H PRN for PAIN, #20 TAB Prov:CLAYTON JORGENSEN [facility] 07/21/18 Cyclobenzaprine Hcl (CYCLOBENZAPRINE HCL) 10 Mg Tablet, 10 MG PO TID PRN for MU SCLE SPASMS, #21 TAB Prov:JOSLYNCLAYTON FNP 07/21/18 Pantoprazole Sodium (PANTOPRAZOLE SODIUM) 40 Mg Tablet.dr, 40 MG PO QDAY, #30 TAB.SR 3 Refills Prov:COLEMAN DAVIDSON MD 05/29/18 Sertraline Hcl (ZOLOFT) 100 Mg Tablet, 1 TAB PO QDAY, #90 TAB 4 Refills Prov:COLEMAN DAVIDSON MD 11/28/17 Ramipril (RAMIPRIL) 10 Mg Capsule, 1 CAP PO QDAY, #90 CAPSULE 3 Refills Prov:COLEMAN DAVIDSON MD 11/28/17 Levothyroxine Sodium (LEVOTHYROXINE SODIUM) 137 Mcg Tablet, 1 TAB PO QDAY, #90 TAB 3 Refills Prov:COLEMAN DAVIDSON MD 11/28/17 Reported Medications Multivitamin (MULTIVITAMINS) Unknown Strength Tablet, PO 05/15/17 Oxygen (OXYGEN) Unknown Strength Inha, 3 L INH QDAY, #3 L 05/15/17 Calcium Carbonate (CALCIUM) 600 Mg Tablet, 1200 MG PO QHS 05/15/17 Reviewed Nurses Notes: Yes Hx Smoking: No Smoking Status: Never Smoker Exposure to Second Hand Smoke?: Yes () Hx Substance Use Disorder: No Hx Alcohol Use: No Constitutional Vital Sign - Last 24 Hours 07/28/18 00:00 Temp 97.8 Pulse 74 Resp 22 B/P (MAP) 153/87 Pulse Ox 94 O2 Delivery Room Air Physical Exam Gen.: Alert, no acute distress Cardiovascular: Regular rate and rhythm, no murmurs gallops or rubs. Respiratory: Lungs are clear to auscultation Musculoskeletal: Pain in the mid back Neuro: Alert and oriented 3, no focal deficits noted Medical Decision Making ED Course/Re-evaluation ED Course Discussed pain medications. It sounds like they're significantly underdosing the pain management. Recommended ibuprofen 4 times a day on a regular basis. Hydrocodone should be used more frequently, would recommend every 4 hours as needed for pain at this point to see what she will require to control her pain better and then can slowly wean down over the next several weeks S her pain begins to improve. Also recommended cyclobenzaprine 3 times a day. She is using Benadryl to help her sleep, I suggested that with the medications she may sleep better but also consider hydroxyzine to use at bedtime as well. Decision to Disposition Date: Jul 28, 2018 Decision to Disposition Time: 00:49 Depart Departure Latest Vital Signs Vital Signs Date Time Temp Pulse Resp B/P (MAP) Pulse Ox O2 Delivery O2 Flow Rate FiO2 07/28/18 00:00 97.8 74 22 153/87 94 Room Air Impression: Primary Impression: T12 vertebral fracture Condition: Improved Disposition: HOME OR SELF-CARE Referrals: COLEMAN DAVIDSON MD (PCP) New Scripts Hydroxyzine Hcl (HYDROXYZINE HCL) 25 Mg Tablet 25 MG PO QHS, #20 TAB 0 Refills Prov: ANH HUTTON MD 07/28/18 Additional Instructions: Take Ibuprofen 600mg every 6 hours. Take with food and drink some extra fluids. Take Hydrocodone/Acetaminophen 5/325, 1-2 every 4 hours as needed for pain. While this medicine can cause dependence, we recommend regular dosing while the pain is severe to see what amount will be needed to control the pain. Then, over the next 4-8 weeks, you can slowly reduce the amount of this medicine until you do not need it anymore. It sounds like at the present, you are not getting enough medicine to control your pain with only 2 tablets a day. Take the Flexeril (Cyclobenzaprine) 10mg muscle relaxers every 8 hours for spasm and pain. You can also reduce this medicine over the next few weeks as the pain improves. Keep wearing your brace. Talk to [facility] about different braces because of the trouble you are having with the brace they wanted you to wear. For sleep, you can use the over the counter Benadryl, however, if this is not effective, you can try Hydroxyzine 25mg tablets, 1-2 at bedtime if needed. Once your pain is under better control and you are sleeping better, you will probably feel a lot better. Problem Qualifiers Primary Impression: T12 vertebral fracture Encounter type: subsequent encounter Fracture type: closed Fracture morphology: unspecified fracture morphology Fracture healing: with routine healing Qualified Codes: S22.089D - Unspecified fracture of t11-T12 vertebra, subsequent encounter for fracture with routine healing ANH HUTTON MD Jul 28, 2018 00:19
[2018-07-28] MEDS ORDERED: hydrOXYzine 25 MG TAB TH 2 TAB/BOTTLE PO ONE (00:50)
[2018-07-28] MEDS ORDERED: HYDR-4225 PO (00:55)
[2018-07-30] MEDS ORDERED: GABA-547 PO ×2 (10:45→10:49)
[2018-07-30] MEDS ORDERED: MELO-207 PO (10:45)
[2018-07-30] MEDS ORDERED: OXYC-869 PO (10:45)
== END 2018-07-28 01:45 | disposition home or self-care (01) ==
LOC: ER 07-28 01:34
DX: S22.089A Unspecified fracture of T11-T12 vertebra, initial encounter for closed fracture (principal)
CPT/HCPCS: 99282

== ENCOUNTER → 2018-07-27 | Outpatient (CLI) | payer MEDICARE, BC ==
[2018-07-23 15:44] VITALS: BMI 28.9
[~2018-07-27] MED LIST changes: +DOCU-202 PO; +GABA-547 PO; +GUAI600T57 PO; +HYDR-4225 PO; +IBUP600T22 PO; +LEVA15HF IH; +LOR5/325 PO; +MELO-207 PO; +OXYC-869 PO
== END ==
LOC: AMB 23:19
PROVIDERS: ATTEND Nurse Practitioner
DX: M54.9 Dorsalgia, unspecified (principal); R53.1 Weakness; R20.2 Paresthesia of skin
CPT/HCPCS: A0425; A0427

== ENCOUNTER 2018-08-04 10:54 | Observation (INO) | payer MEDICARE, BC ==
[~2018-08-04] VITALS: Ht 154.9 cm; Wt 71.2 kg
[~2018-08-04 10:54] MED LIST changes: +GABA-547 PO; +HYDR-4225 PO; +MELO-207 PO; +OXYC-869 PO
--- NOTE | 2018-08-04 11:05 | ER Report ---
History and Physical Time Seen By MD: 11:04 HPI/ROS CHIEF COMPLAINT: Right leg pain HISTORY OF PRESENT ILLNESS: 73-year-old female patient presents to the emergency room with complaint of right leg pain. Patient has been well-known to the ER re cently as she had a fall that resulted in a T12 fracture. She's been seen numerous times for pain associated with that. She comes in today stating that she has significant amounts of pain to the right leg. She states her back is feeling better. She states that she is unable to get up from a seated position without assistance. She states that they have purchased her a lift chair, which typically results in her sliding off on the floor. She states that she is currently living at home with her and she states that he has not been helpful in helping her get up. She has had a nurse was coming into the house, but she is not there all day. Patient was seen by her primary care provider who attempted to get her into extended-care here in the hospital, however they said that she'll have an acceptable stay. REVIEW OF SYSTEMS: Respiratory: No cough, no dyspnea. Cardiovascular: No chest pain, no palpitations. Gastrointestinal: No vomiting, no abdominal pain. Musculoskeletal: As noted above Allergies: Coded Allergies: No Known Drug Allergies (Verified , 08/04/18) Home Meds Active Scripts Gabapentin (GABAPENTIN) 100 Mg Capsule, 1-4 TAB PO BID, #60 CAPSULE 3 Refills Prov:COLEMAN DAVIDSON MD 07/30/18 Meloxicam (MELOXICAM) 15 Mg Tablet, 15 MG PO QDAY PRN for pain, #30 TAB 3 Refills Prov:COLEMAN DAVIDSON MD 07/30/18 Oxycodone Hcl/Acetaminophen (PERCOCET 7.5-325 MG TABLET) 1 Each Tablet, 1 EACH P O QID PRN for pain, #60 TAB Prov:COLEMAN DAVIDSON MD 07/30/18 Hydroxyzine Hcl (HYDROXYZINE HCL) 25 Mg Tablet, 25 MG PO QHS, #20 TAB 0 Refills Prov:ANH HUTTON MD 07/28/18 Levalbuterol Tartrate (XOPENEX HFA) 15 Gm Hfa.aer.ad, 15 GM IH Q4H PRN for SHORTNESS OF BREATH, #1 INH Prov:WOOD ALASP 07/25/18 Cyclobenzaprine Hcl (CYCLOBENZAPRINE HCL) 10 Mg Tablet, 10 MG PO TID PRN for MUSCLE SPASMS, #21 TAB Prov:CLAYTON JORGENSEN [facility] 07/21/18 Pantoprazole Sodium (PANTOPRAZOLE SODIUM) 40 Mg Tablet.dr, 40 MG PO QDAY, #30 TAB.SR 3 Refills Prov:COLEMAN DAVIDSON MD 05/29/18 Sertraline Hcl (ZOLOFT) 100 Mg Tablet, 1 TAB PO QDAY, #90 TAB 4 Refills Prov:COLEMAN DAVIDSON MD 11/28/17 Ramipril (RAMIPRIL) 10 Mg Capsule, 1 CAP PO QDAY, #90 CAPSULE 3 Refills Prov:COLEMAN DAVIDSON MD 11/28/17 Levothyroxine Sodium (LEVOTHYROXINE SODIUM) 137 Mcg Tablet, 1 TAB PO QDAY, #90 TAB 3 Refills Prov:COLEMAN DAVIDSON MD 11/28/17 Reported Medications Multivitamin (MULTIVITAMINS) Unknown Strength Tablet, PO 05/15/17 Oxygen (OXYGEN) Unknown Strength Inha, 3 L INH QDAY, #3 L 05/15/17 Calcium Carbonate (CALCIUM) 600 Mg Tablet, 1200 MG PO QHS 05/15/17 Discontinued Scripts Ibuprofen (IBUPROFEN) 600 Mg Tablet, 600 MG PO Q6H PRN for PAIN, #60 TAB Prov:WOOD ALAS [facility] 07/25/18 Guaifenesin (MUCINEX) 600 Mg Tablet.er, 600 MG PO BID, #60 TAB Prov:WOOD ALAS [facility] 07/25/18 Hydrocodone Bit/Acetaminophen (HYDROCODON-ACETAMINOPHEN 5-325) 1 Each Tablet, 1 EACH PO Q4-6H PRN for PAIN, #20 TAB Prov:CLAYTON JORGENSEN [facility] 07/21/18 Past Medical/Surgical History Patient has a past medical history of hypertension, oxygen night, pneumonia, arthritis, bilateral ankle fracture, back pain, T12 fracture, hypothyroidism, depression. Patient has a surgical history of back surgery, ankle surgery, stones removed from gallbladder with abscess cleaned and drained. Patient has a family medical history of diabetes. Reviewed Nurses Notes: Yes Hx Smoking: No Smoking Status: Never Smoker Exposure to Second Hand Smoke?: Yes () Hx Substance Use Disorder: No Hx Alcohol Use: No Constitutional Vital Sign - Last 24 Hours 08/04/18 08/04/18 08/04/18 08/04/18 10:54 11:01 11:09 11:30 Temp 98.6 Pulse 102 102 Resp 14 18 B/P (MAP) 152/95 (114) 152/95 136/79 (98) Pulse Ox 90 90 O2 Delivery Nasal Cannula Nasal Cannula O2 Flow Rate 3 08/04/18 08/04/18 08/04/18 08/04/18 11:35 11:50 12:00 12:05 Pulse 105 100 97 Resp 18 16 25 B/P (MAP) 124/99 (107) Pulse Ox 90 91 91 O2 Delivery Nasal Cannula Nasal Cannula Nasal Cannula O2 Flow Rate 3 3 3 08/04/18 08/04/18 08/04/18 08/04/18 14:28 14:30 15:05 15:28 Pulse 94 92 Resp 28 B/P (MAP) 135/83 (100) 134/94 (107) Pulse Ox 93 O2 Delivery Nasal Cannula O2 Flow Rate 3 08/04/18 08/04/18 15:30 15:35 Pulse 92 B/P (MAP) 148/90 (109) Physical Exam General Appearance: The patient is alert, has no immediate need for airway protection and no current signs of toxicity. Respiratory: Chest is non tender, lungs are clear to auscultation. Cardiac: regular rate and rhythm Gastrointestinal: Abdomen is soft and non tender, no masses, bowel sounds normal. Musculoskeletal: Neck: Neck is supple and non tender. Extremities have full range of motion and are non tender. No obvious tenderness to the ankles, right knee. Skin: No rashes or lesions. DIFFERENTIAL DIAGNOSIS: After history and physical exam differential diagnosis was considered for leg pain, T12 fracture, pain is radiating from fracture, urinary tract infection. Medical Decision Making Data Points Result Diagram: 08/04/18 1105 08/04/18 1105 Laboratory Hematology Test 08/04/18 11:05 08/04/18 11:18 Red Blood Count 5.87 M/uL (4.17-5.56) Mean Corpuscular Volume 90.3 fL (80.0-96.0) Mean Corpuscular Hemoglobin 30.0 pg (26.0-33.0) Mean Corpuscular Hemoglobin Concent 33.2 g/dL (32.0-36.0) Red Cell Distribution Width 13.8 % (11.5-14.5) Mean Platelet Volume 8.8 fL (7.2-11.1) Neutrophils (%) (Auto) 84.8 % (39.4-72.5) Lymphocytes (%) (Auto) 8.3 % (17.6-49.6) Monocytes (%) (Auto) 5.5 % (4.1-12.4) Eosinophils (%) (Auto) 1.0 % (0.4-6.7) Basophils (%) (Auto) 0.4 % (0.3-1.4) Nucleated RBC Relative Count (auto) 0.1 /100WBC Neutrophils # (Auto) 9.0 K/uL (2.0-7.4) Lymphocytes # (Auto) 0.9 K/uL (1.3-3.6) Monocytes # (Auto) 0.6 K/uL (0.3-1.0) Eosinophils # (Auto) 0.1 K/uL (0.0-0.5) Basophils # (Auto) 0.0 K/uL (0.0-0.1) Nucleated RBC Absolute Count (auto) 0.01 K/uL Erythrocyte Sedimentation Rate 10 mm/HOUR (0-30) Sodium Level 138 mmol/L (137-145) Potassium Level 3.2 mmol/L (3.5-5.0) Chloride Level 92 mmol/L (98-107) Carbon Dioxide Level 33 mmol/L (22-31) Blood Urea Nitrogen 13 mg/dl (7-18) Creatinine 0.60 mg/dl (0.52-1.04) Glomerular Filtration Rate Calc > 60.0 Random Glucose 211 mg/dl (75-110) Calcium Level 9.3 mg/dl (8.4-10.2) Total Bilirubin 1.1 mg/dl (0.2-1.3) Aspartate Amino Transf (AST/SGOT) 50 U/L (0-35) Alanine Aminotransferase (ALT/SGPT) 39 U/L (0-56) Alkaline Phosphatase 151 U/L (0-126) C-Reactive Protein 2.4 mg/dl (<1.0) Total Protein 8.0 g/dl (6.3-8.2) Albumin 4.2 g/dl (3.5-5.0) Urine Color Yellow Urine Clarity Clear Urine pH 7.0 pH (4.8-9.5) Urine Specific [place] 1.008 Urine Protein Negative mg/dL (NEGATIVE) Urine Glucose (UA) Negative mg/dL (NEGATIVE) Urine Ketones Negative mg/dL (NEGATIVE) Urine Blood Negative (NEGATIVE) Urine Nitrite Negative (NEGATIVE) Urine Bilirubin Negative (NEGATIVE) Urine Urobilinogen Negative mg/dL (0.2-1.9) Urine Leukocyte Esterase Negative (NEGATIVE) Urine RBC None /HPF (0-2/HPF) Urine WBC <1 /HPF (0-5/HPF) Urine Squamous Epithelial Cells None /LPF (NONE-FEW) Urine Bacteria Negative /HPF (NONE-FEW) Urine Mucus None /HPF (NONE-FEW) Chemistry Test 08/04/18 11:05 08/04/18 11:18 White Blood Count 10.7 k/uL (4.5-11.0) Red Blood Count 5.87 M/uL (4.17-5.56) Hemoglobin 17.6 g/dL (12.0-16.0) Hematocrit 53.0 % (34.0-47.0) Mean Corpuscular Volume 90.3 fL (80.0-96.0) Mean Corpuscular Hemoglobin 30.0 pg (26.0-33.0) Mean Corpuscular Hemoglobin Concent 33.2 g/dL (32.0-36.0) Red Cell Distribution Width 13.8 % (11.5-14.5) Platelet Count 401 K/uL (150-450) Mean Platelet Volume 8.8 fL (7.2-11.1) Neutrophils (%) (Auto) 84.8 % (39.4-72.5) Lymphocytes (%) (Auto) 8.3 % (17.6-49.6) Monocytes (%) (Auto) 5.5 % (4.1-12.4) Eosinophils (%) (Auto) 1.0 % (0.4-6.7) Basophils (%) (Auto) 0.4 % (0.3-1.4) Nucleated RBC Relative Count (auto) 0.1 /100WBC Neutrophils # (Auto) 9.0 K/uL (2.0-7.4) Lymphocytes # (Auto) 0.9 K/uL (1.3-3.6) Monocytes # (Auto) 0.6 K/uL (0.3-1.0) Eosinophils # (Auto) 0.1 K/uL (0.0-0.5) Basophils # (Auto) 0.0 K/uL (0.0-0.1) Nucleated RBC Absolute Count (auto) 0.01 K/uL Erythrocyte Sedimentation Rate 10 mm/HOUR (0-30) Glomerular Filtration Rate Calc > 60.0 Calcium Level 9.3 mg/dl (8.4-10.2) Total Bilirubin 1.1 mg/dl (0.2-1.3) Aspartate Amino Transf (AST/SGOT) 50 U/L (0-35) Alanine Aminotransferase (ALT/SGPT) 39 U/L (0-56) Alkaline Phosphatase 151 U/L (0-126) C-Reactive Protein 2.4 mg/dl (<1.0) Total Protein 8.0 g/dl (6.3-8.2) Albumin 4.2 g/dl (3.5-5.0) Urine Color Yellow Urine Clarity Clear Urine pH 7.0 pH (4.8-9.5) Urine Specific [place] 1.008 Urine Protein Negative mg/dL (NEGATIVE) Urine Glucose (UA) Negative mg/dL (NEGATIVE) Urine Ketones Negative mg/dL (NEGATIVE) Urine Blood Negative (NEGATIVE) Urine Nitrite Negative (NEGATIVE) Urine Bilirubin Negative (NEGATIVE) Urine Urobilinogen Negative mg/dL (0.2-1.9) Urine Leukocyte Esterase Negative (NEGATIVE) Urine RBC None /HPF (0-2/HPF) Urine WBC <1 /HPF (0-5/HPF) Urine Squamous Epithelial Cells None /LPF (NONE-FEW) Urine Bacteria Negative /HPF (NONE-FEW) Urine Mucus None /HPF (NONE-FEW) Urinalysis Test 08/04/18 11:18 Urine Color Yellow Urine Clarity Clear Urine pH 7.0 pH (4.8-9.5) Urine Specific [place] 1.008 Urine Protein Negative mg/dL (NEGATIVE) Urine Glucose (UA) Negative mg/dL (NEGATIVE) Urine Ketones Negative mg/dL (NEGATIVE) Urine Blood Negative (NEGATIVE) Urine Nitrite Negative (NEGATIVE) Urine Bilirubin Negative (NEGATIVE) Urine Urobilinogen Negative mg/dL (0.2-1.9) Urine Leukocyte Esterase Negative (NEGATIVE) Urine RBC None /HPF (0-2/HPF) Urine WBC <1 /HPF (0-5/HPF) Urine Squamous Epithelial Cells None /LPF (NONE-FEW) Urine Bacteria Negative /HPF (NONE-FEW) Urine Mucus None /HPF (NONE-FEW) EKG/Imaging Imaging KNEE 4 VIEW RIGHT COMPARISONS: None. ADDITIONAL PERTINENT HISTORY: Knee pain FINDINGS: Osseous structures: Patient status post total right knee arthroplasty. No bony fractures. Joint spaces: Components in good position. Surrounding soft tissues: Negative. IMPRESSION: 1. Patient status post total right knee arthroplasty. 2. No acute appearing bony abnormalities. Report Dictated By: Yosi Nguyen MD at 08/04/2018 11:48 AM Report E-Signed By: Yosi Nguyen MD at 08/04/2018 11:49 AM L SPINE W/O CONTRAST HISTORY: t12 fracture, leg pain ADDITIONAL HISTORY: None. TECHNIQUE: Multi-planar multi-sequence MRI lumbar without intravenous contrast. CONTRAST: None. COMPARISON: CT of the thoracic spine 07/21/2018. FINDINGS: Alignment: The vertebral bodies and posterior elements demonstrate normal alignment. Marrow signal: There is a fracture of the superior body of T12, with edema and increased T2 signal identified. The fracture extends into the right pedicle. Spinal canal and neural foramen are patent. Normal signal is seen in the L1-L5 vertebral bodies. Normal vertebral body height is identified. Disc signal: Normal. Distal thoracic cord: Normal. Conus: Normal. Cauda equina: Unremarkable. Disc Spaces: Lower T spine: Negative. L1-2: Negative. L2-3: Negative. L3-4: Negative. L4-5: Negative. L5-S1: Negative. Paravertebral soft tissues: There is increased T2 signal consistent with edema in the paraspinal musculature at T12. Visualized abdominal and pelvic structures: Unremarkable. IMPRESSION: 1. There is a transverse fracture through the superior half of the T12 vertebral body, with edema identified. Fracture extends into the right pedicle. 2. The lumbar vertebral bodies are intact.. 3. Spinal canal and neural foramen are patent. Report Dictated By: Eric Khan at 08/04/2018 2:11 PM Report E-Signed By: Eric Khan at 08/04/2018 2:23 PM T SPINE W/O CONTRAST Indication: t12 fracture, leg pain Comparison: CT of the thoracic spine 07/21/2018. Technique: Multisequence multiplanar MRI of the thoracic spine without gadolinium was obtained. Findings: Thoracic cord: Normal signal. Vertebral bodies: There is a fracture of the superior half of the T12 vertebral body, which extends into the right pedicle. The remaining vertebral bodies demonstrate normal signal. Spinal ligaments: Intact. There is increased T2 signal in the paraspinal musculature at T12, consistent wi th contusion. The spinal canal and neural foramen at all levels of the thoracic spine are patent. Impression: 1. Nondisplaced fracture in the superior half of the T12 vertebral body, with fracture line extending into the right pedicle. 2. Remaining vertebral bodies of the thoracic spine are intact. 3. Spinal canal and neural foramen are patent at all levels. Report Dictated By: Eric Khan at 08/04/2018 2:11 PM Report E-Signed By: Eric Khan at 08/04/2018 2:22 PM ED Course/Re-evaluation ED Course Patient is admitted and examined, history and physical were obtained. Differential diagnoses were considered. On examination patient had no obvious t enderness to the right knee, no tenderness to bilateral ankles. Family is requesting that the patient be admitted and possibly admitted to extended care. Possible. A CBC, CMP, urinalysis were obtained. A MRI of the thoracic and lumbar spine were done. The results were negative excluding a T12 fracture which was already known. X-ray of the right knee was done which was negative. Labs were unremarkable. I discussed the case with patient and family. With patient having difficult time getting up and ambulating especially getting out of the chair to go to the bathroom I believe that the patient does need to be admitted and ultimately admitted to extended care. I discussed case with Dr. Sepulveda, [facility], who came down and evaluated the patient. He did agree to accept the patient for admission. He is placed consult with Dr. Badillo regarding the knee pain. I discussed with the patient and her family and they verbalized understanding and agreement with plan. Decision to Disposition Date: Aug 04, 2018 Decision to Disposition Time: 15:18 Depart Departure Latest Vital Signs Vital Signs Date Time Temp Pulse Resp B/P (MAP) Pulse Ox O2 Delivery O2 Flow Rate FiO2 08/04/18 15:35 92 08/04/18 15:30 148/90 (109) 10/14/18 14:30 28 93 Nasal Cannula 3 10/14/18 11:09 98.6 Impression: Primary Impression: Knee pain, right Condition: Condition Unchanged Disposition: Admitted from ER Referrals: COLEMAN DAVIDSON MD (PCP) Problem Qualifiers Primary Impression: Knee pain, right Chronicity: acute Qualified Codes: M25.561 - Pain in right knee CLAYTON JORGENSEN Aug 04, 2018 11:05
[2018-08-04 11:25] LABS: PLATELET COUNT, AUTOMATED 401 K/uL (150-450)
--- NOTE | 2018-08-04 11:53 | RADIOLOGY IMAGING REPORT ---
FACILITY: [facility] [place] PATIENT NAME: Aury Chan : 1945 MR: [id number] V: [id number] EXAM DATE: ORDERING PHYSICIAN: CLAYTON JORGENSEN TECHNOLOGIST: Location: [facility] [place] Patient: Aury Chan : 1945 Visit/Account:[id number] Date of Sevice: 08/04/2018 KNEE 4 VIEW RIGHT COMPARISONS: None. ADDITIONAL PERTINENT HISTORY: Knee pain FINDINGS: Osseous structures: Patient status post total right knee arthroplasty. No bony fractures. Joint spaces: Components in good position. Surrounding soft tissues: Negative. IMPRESSION: 1. Patient status post total right knee arthroplasty. 2. No acute appearing bony abnormalities. Report Dictated By: Yosi Nguyen MD at 08/04/2018 11:48 AM Report E-Signed By: Yosi Nguyen MD at 08/04/2018 11:49 AM WSN:[id number]
--- NOTE | 2018-08-04 14:27 | RADIOLOGY IMAGING REPORT ---
FACILITY: [facility] PATIENT NAME: Aury Chan : 1945 MR: [id number] V: [id number] EXAM DATE: ORDERING PHYSICIAN: CLAYTON JORGENSEN TECHNOLOGIST: Location: [facility] Patient: Aury Chan : 1945 Visit/Account:[id number] Date of Sevice: 08/04/2018 T SPINE W/O CONTRAST Indication: t12 fracture, leg pain Comparison: CT of the thoracic spine 07/21/2018. Technique: Multisequence multiplanar MRI of the thoracic spine without gadolinium was obtained. Findings: Thoracic cord: Normal signal. Vertebral bodies: There is a fracture of the superior half of the T12 vertebral body, which extends i nto the right pedicle. The remaining vertebral bodies demonstrate normal signal. Spinal ligaments: Intact. There is increased T2 signal in the paraspinal musculature at T12, consistent with contusion. The spinal canal and neural foramen at all levels of the thoracic spine are patent. Impression: 1. Nondisplaced fracture in the superior half of the T12 vertebral body, with fracture line extending into the right pedicle. 2. Remaining vertebral bodies of the thoracic spine are intact. 3. Spinal canal and neural foramen are patent at all levels. Report Dictated By: Eric Khan at 08/04/2018 2:11 PM Report E-Signed By: Eric Khan at 08/04/2018 2:22 PM WSN:[id number]
--- NOTE | 2018-08-04 14:27 | RADIOLOGY IMAGING REPORT ---
FACILITY: [facility] PATIENT NAME: Aury Chan : 1945 MR: [id number] V: [id number] EXAM DATE: ORDERING PHYSICIAN: CLAYTON JORGENSEN TECHNOLOGIST: Location: [facility] - [place] Patient: Aury Chan : 1945 Visit/Account:[id number] Date of Sevice: 08/04/2018 L SPINE W/O CONTRAST HISTORY: t12 fracture, leg pain ADDITIONAL HISTORY: None. TECHNIQUE: Multi-planar multi-sequence MRI lumbar without intravenous contrast. CONTRAST: None. COMPARISON: CT of the thoracic spine 07/21/2018. FINDINGS: Alignment: The vertebral bodies and posterior elements demonstrate normal alignment. Marrow signal: There is a fracture of the superior body of T12, with edema and increased T2 signal id entified. The fracture extends into the right pedicle. Spinal canal and neural foramen are patent. Normal signal is seen in the L1-L5 vertebral bodies. Normal vertebral body height is identified. Disc signal: Normal. Distal thoracic cord: Normal. Conus: Normal. Cauda equina: Unremarkable. Disc Spaces: Lower T spine: Negative. L1-2: Negative. L2-3: Negative. L3-4: Negative. L4-5: Negative. L5-S1: Negative. Paravertebral soft tissues: There is increased T2 signal consistent with edema in the paraspinal musc ulature at T12. Visualized abdominal and pelvic structures: Unremarkable. IMPRESSION: 1. There is a transverse fracture through the superior half of the T12 vertebral body, with edema silvia ntified. Fracture extends into the right pedicle. 2. The lumbar vertebral bodies are intact.. 3. Spinal canal and neural foramen are patent. Report Dictated By: Eric Khan at 08/04/2018 2:11 PM Report E-Signed By: Eric Khan at 08/04/2018 2:23 PM WSN:[id number]
[2018-08-04] MEDS ORDERED: MAGNESIUM HYDROXIDE* 30ML UDCP PO PRN (15:25)
[2018-08-04] MEDS ORDERED: ACETAMINOPHEN 500 MG TAB PO PRN (15:25)
[2018-08-04] MEDS ORDERED: BISACODYL 10 MG SUPP PR PRN (15:25)
--- NOTE | 2018-08-04 16:04 | History & Physical ---
History of Present Illness History of Present Illness 73yo female with a h/o COPD and recent 3 column T12 fracture who came to the ER for worsening R knee pain. On 07/19, she had a fall that caused a 3 column T12 fracture. She was sent home in a TLSO fracture, but ended being admitted from 07/22-07/25 for intractable pain that was partly due to wearing the brace inc orrectly. Since being home, she has had a couple of falls, was in the ER on 07/28 and saw her PCP on 07/30. She has continued to have a lot of back pain and they even looked into trying to get her into [facility], but she didn't qualify. Today, she reports that the knee pain is what bothers her the most. It is on the R, and encircles the patella. She reports that pain started after the initial fall (no reports in the notes reporting that she has had knee pain) and that it might be getting worse. She has no pain at rest, but then can have 10/10 pain with standing. She is unable to get up without assistance because of the pain. The back pain seems to be fairly well controlled. She had an uneve ntful TKA of the knee about 2 years ago. Up until the fall, she has been able to ambulate on it without problems. She denies any SOB, but has her chronic problems with COPD. She was told to wear O2 24 hours a day because of her polycythemia. Last BM was a couple of days ago, but she doesn't feel bloated. No reports of nausea. History Problems: (1) COPD (chronic obstructive pulmonary disease) Status: Chronic (2) T12 vertebral fracture Status: Acute (3) Depression with anxiety Status: Chronic (4) Hypothyroidism Status: Chronic (5) Benign hypertension Status: Chronic (6) Polycythemia Status: Chronic Home Meds Active Scripts Gabapentin (GABAPENTIN) 100 Mg Capsule, 1-4 TAB PO BID, #60 CAPSULE 3 Refills Prov:COLEMAN DAVIDSON MD 07/30/18 Meloxicam (MELOXICAM) 15 Mg Tablet, 15 MG PO QDAY PRN for pain, #30 TAB 3 Refills Prov:COLEMAN DAVIDSON MD 07/30/18 Oxycodone Hcl/Acetaminophen (PERCOCET 7.5-325 MG TABLET) 1 Each Tablet, 1 EACH PO QID PRN for pain, #60 TAB Prov:COLEMAN DAVIDSON MD 07/30/18 Hydroxyzine Hcl (HYDROXYZINE HCL) 25 Mg Tablet, 25 MG PO QHS, #20 TAB 0 Refills Prov:ANH HUTTON MD 07/28/18 Levalbuterol Tartrate (XOPENEX HFA) 15 Gm Hfa.aer.ad, 15 GM IH Q4H PRN for SHORTNESS OF BREATH, #1 INH Prov:WOOD ALAS GENETIC TECHNOLOGIST 07/25/18 Cyclobenzaprine Hcl (CYCLOBENZAPRINE HCL) 10 Mg Tablet, 10 MG PO TID PRN for MUSCLE SPASMS, #21 TAB Prov:CLAYTON JORGENSEN [facility] 07/21/18 Pantoprazole Sodium (PANTOPRAZOLE SODIUM) 40 Mg Tablet.dr, 40 MG PO QDAY, #30 TAB.SR 3 Refills Prov:COLEMAN DAVIDSON MD 05/29/18 Sertraline Hcl (ZOLOFT) 100 Mg Tablet, 1 TAB PO QDAY, #90 TAB 4 Refills Prov:COLEMAN DAVIDSON MD 11/28/17 Ramipril (RAMIPRIL) 10 Mg Capsule, 1 CAP PO QDAY, #90 CAPSULE 3 Refills Prov:COLEMAN DAVIDSON MD 11/28/17 Levothyroxine Sodium (LEVOTHYROXINE SODIUM) 137 Mcg Tablet, 1 TAB PO QDAY, #90 TAB 3 Refills Prov:COLEMAN DAVIDSON MD 11/28/17 Reported Medications Multivitamin (MULTIVITAMINS) Unknown Strength Tablet, PO 05/15/17 Oxygen (OXYGEN) Unknown Strength Inha, 3 L INH QDAY, #3 L 05/15/17 Calcium Carbonate (CALCIUM) 600 Mg Tablet, 1200 MG PO QHS 05/15/17 Discontinued Scripts Ibuprofen (IBUPROFEN) 600 Mg Tablet, 600 MG PO Q6H PRN for PAIN, #60 TAB Prov:WOOD ALAS [facility] 07/25/18 Guaifenesin (MUCINEX) 600 Mg Tablet.er, 600 MG PO BID, #60 TAB Prov:WOOD ALAS GENETIC TECHNOLOGIST 07/25/18 Hydrocodone Bit/Acetaminophen (HYDROCODON-ACETAMINOPHEN 5-325) 1 Each Tablet, 1 EACH PO Q4-6H PRN for PAIN, #20 TAB Prov:CLAYTON JOREGNSEN GENETIC TECHNOLOGIST 07/21/18 Allergies: Coded Allergies: No Known Drug Allergies (Verified , 08/04/18) Patient History: FH: diabetes mellitus MOTHER, , Age:63 Hx Smoking: No Smoking Status: Never Smoker Exposure to Second Hand Smoke?: Yes () Caffeine Intake: Soda Caffeine/Cups Per Day: 2 DIET SODAS DAILY Hx Alcohol Use: No Hx Substance Use Disorder: No Social Drug Use: Never Review of Systems All Systems Reviewed/Normal: Yes, Except as Noted Exam Vital Signs Vital Signs Date Time Temp Pulse Resp B/P (MAP) Pulse Ox O2 Delivery O2 Flow Rate FiO2 08/04/18 14:30 94 28 93 Nasal Cannula 3 08/04/18 14:28 135/83 (100) 08/04/18 11:09 98.6 General Appearance: Alert, Awake, No Acute Distress Neuro: No Gross deficits Eyes: PERRLA ENT: Moist Mucous Membranes Cardiovascular: Regular Rate and Rhythm, No JVD Respiratory: Clear to Auscultation (Mild work of breathing) GI: Abd Soft and Non-Tender (Mildly distended) Musculoskeletal: Other (R knee has a well healed verticle scar. No obvious erythema/swelling. No pain with palpation of the joint line or the patella. No pain with extension of the knee against resistance.) Extremities: No Edema Integumentary: No Jaundice, No Cyanosis Medical Decision Making Data Points Result Diagram: 08/04/18 1105 08/04/18 1105 Item Value Date Time Erythrocyte Sedimentation Rate 10 mm/HOUR 08/04/18 1105 C-Reactive Protein 2.4 mg/dl H 08/04/18 1105 Total Bilirubin 1.1 mg/dl 08/04/18 1105 Aspartate Amino Transf (AST/SGOT) 50 U/L H 08/04/18 1105 Alanine Aminotransferase (ALT/SGPT) 39 U/L 08/04/18 1105 Alkaline Phosphatase 151 U/L H 08/04/18 1105 Urine WBC <1 /HPF 08/04/18 1118 Urine RBC None /HPF 08/04/18 1118 Urine Leukocyte Esterase Negative 08/04/18 1118 Urine Urobilinogen Negative mg/dL 08/04/18 1118 Urine Nitrite Negative 08/04/18 1118 EKG / Imaging Imaging Knee Xray - 1. Patient status post total right knee arthroplasty. 2. No acute appearing bony abnormalities. Lumbar Spine MRI - 1. There is a transverse fracture through the superior half of the T12 vertebral body, with edema identified. Fracture extends into the right pedicle. 2. The lumbar vertebral bodies are intact.. 3. Spinal canal and neural foramen are patent. Thoracic Spine MRI - 1. Nondisplaced fracture in the superior half of the T12 vertebral body, with fracture line extending into the right pedicle. 2. Remaining vertebral bodies of the thoracic spine are intact. 3. Spinal canal and neural foramen are patent at all levels. Assessment and Plan Problems: (1) Knee pain, right Status: Acute Assessment & Plan: The patient presented with 10/10 knee pain with bearing weight. She reports that the pain has been present since a fall on 07/19, but there is no record of her complaining about it in the numerous records since. She had an uneventful TKA of that knee about 2 years ago with full recovery. The exam is benign and plain films show no bony abnormalities or problems with the prosthesis. She has had falls since 07/19, so could have injured it then. Now, she is unable to get up without assistance and has much difficulty with ambulation. Will ask OT/PT to evaluate. I will talk with Ortho about any suggestions for further imaging and/or evaluation. (2) T12 vertebral fracture Status: Acute Assessment & Plan: Secondary to a fall on 07/19. She reports that the pain is improving. MRI today showed no problems with the spinal canal. Continue Gabapentin, and Percocet for pain. She is to continue wearing the TLSO brace. Will start a bowel regimen to prevent constipation from the Percocet. She has followup with Dr. Badillo on 08/06. (3) Hyperglycemia Status: Acute Assessment & Plan: HgA1c on 05/21 was 5.7. Will check a glucose in the morning and recheck HgA1C. (4) Hypokalemia Status: Acute Assessment & Plan: Mild. Recheck in the morning. (5) Polycythemia Status: Chronic Assessment & Plan: Secondary to chronic hypoxia. She is to wear O2 24 hours a day. (6) COPD (chronic obstructive pulmonary disease) Status: Chronic Assessment & Plan: Lungs are clear. (7) Benign hypertension Status: Chronic Assessment & Plan: Continue chronic ramipril. (8) Hypothyroidism Status: Chronic Assessment & Plan: Continue chronic levothyroxine. (9) Depression with anxiety Status: Chronic Assessment & Plan: Continue chronic sertraline. Copies to: CHRISSY BADILLO MD; COLEMAN DAVIDSON MD ; Venous Thromboembolism Antithrombotics Is Pt On Any Antithrombotics?: No Exam Sepsis Risk: No Definite Risk Problem Qualifiers (1) Knee pain, right: Chronicity: acute Qualified Codes: M25.561 - Pain in right knee BIJU DAVILA MD Aug 04, 2018 16:04
[2018-08-04 16:15] VITALS: BP 144/99
[2018-08-04] MEDS: POLYETHYLENE GLYCOL 17 GM PKT PO SCH (16:37)
[2018-08-04 18:19] VITALS: BP 152/94
[2018-08-04] MEDS: GABAPENTIN 100 MG CAP PO SCH (20:57)
[2018-08-04] MEDS: DOCUSATE SODIUM 100 MG CAP PO SCH (20:57)
[2018-08-05 01:48] VITALS: BP 175/93
[2018-08-05] MEDS: LEVOTHYROXINE SOD 0.137 MG TAB PO SCH (05:24)
[2018-08-05 05:33] VITALS: BP 171/95
[2018-08-05 07:04] VITALS: BP 156/85
[2018-08-05] MEDS: GABAPENTIN 100 MG CAP PO SCH ×2 (09:29→20:29)
[2018-08-05] MEDS: RAMIPRIL 2.5 MG CAP PO SCH (09:30)
[2018-08-05] MEDS: PANTOPRAZOLE SOD 40 MG TABEC PO SCH (09:30)
[2018-08-05] MEDS: SERTRALINE HCL 50 MG TAB PO SCH (09:30)
[2018-08-05] MEDS: POLYETHYLENE GLYCOL 17 GM PKT PO SCH (09:30)
[2018-08-05] MEDS: DOCUSATE SODIUM 100 MG CAP PO SCH ×2 (09:30→20:29)
[2018-08-05] MEDS: ENOXAPARIN 40 MG/0.4ML SYR SC SCH (09:30)
[2018-08-05 10:35] VITALS: Ht 154.9 cm; Wt 71.2 kg
--- NOTE | 2018-08-05 11:03 | Hospitalist Progress Note ---
Subjective Progress Notes Subjective She has complaints of knee pain this morning, but reports it is improving since yesterday. She has had hallucinations of people in her room. She reports these started prior to admission, but was embarrassed to tell anyone about them. Patient Complains of: Cardiovascular: No: Chest Pain Respiratory: No: Shortness of Breath Physical Exam Vital Signs Date Time Temp Pulse Resp B/P (MAP) Pulse Ox O2 Delivery O2 Flow Rate FiO2 08/05/18 07:04 98.1 78 16 156/85 (108) 92 Nasal Cannula 4.0 Intake and Output 08/05/18 01:00 Intake Total 222 ml Output Total 20 ml Balance 202 ml Intake Oral 222 ml Output Urine Total 20 ml # Voids 1 General Appearance: Alert, Awake, No Acute Distress, Afebrile Neuro: No Gross deficits Cardiovascular: Regular Rate and Rhythm Respiratory: No Respiratory Distress, Clear to Auscultation GI: Soft and Non-Tender Extremities: Warm, Perfused; No Edema; Other (right knee exam normal, no pain elecited from exam) Psych: Alert & Oriented X3, Appropriate Mood & Affect Result Diagram: 08/04/18 1105 08/05/18 0509 Assessment and Plan Problems: (1) Knee pain, right Status: Acute Assessment & Plan: The patient presented with 10/10 knee pain with bearing weight. She reports that the pain has been present since a fall on 07/19, but there is no record of her complaining about it in the numerous records since. She had an uneventful TKA of that knee about 2 years ago with full recovery. The exam is benign and plain films show no bony abnormalities or problems with the prosthesis. She has had falls since 07/19, so could have injured it then. Now, she is unable to get up without assistance and has much difficulty with ambulation. Will ask OT/PT to evaluate. Dr. Badillo did see patient in consult this morning. (2) T12 vertebral fracture Status: Acute Assessment & Plan: Secondary to a fall on 07/19. She reports that the pain is improving. MRI today showed no problems with the spinal canal. Continue Gabapentin, and Percocet for pain. She is to continue wearing the TLSO brace. Will start a bowel regimen to prevent constipation from the Percocet. She has followup with Dr. Badillo on 08/06. (3) Adverse drug reaction Status: Acute Assessment & Plan: She has complaints of hallucinations. I believe this is related to the Percocet. She will be switched to Lortab and have Lidocaine patch placed to back for pain. Continue to monitor. (4) Hyperglycemia Status: Acute Assessment & Plan: HgA1c on 05/21 was 5.7. Glucose 113 this morning and HgA1C 6.0. (5) Hypokalemia Status: Acute Assessment & Plan: Mild. Recheck in the morning. (6) Polycythemia Status: Chronic Assessment & Plan: Secondary to chronic hypoxia. She is to wear O2 24 hours a day. (7) COPD (chronic obstructive pulmonary disease) Status: Chronic Assessment & Plan: Lungs are clear. (8) Benign hypertension Status: Chronic Assessment & Plan: Continue chronic ramipril. (9) Hypothyroidism Status: Chronic Assessment & Plan: Continue chronic levothyroxine. (10) Depression with anxiety Status: Chronic Assessment & Plan: Continue chronic sertraline. Exam Sepsis Risk: No Definite Risk Problem Qualifiers (1) Knee pain, right: Chronicity: acute Qualified Codes: M25.561 - Pain in right knee WOOD ALAS MOISTURE MACHINE TENDER Aug 05, 2018 11:03
[2018-08-05] MEDS ORDERED: LIDOCAINE 5% PATCH TP SCH (11:16)
[2018-08-05 15:25] VITALS: BP 149/82
[2018-08-05] MEDS: IBUPROFEN 600 MG TAB PO PRN (17:19)
[2018-08-05] MEDS: APAP/HYDROCODONE 325/5 TAB PO PRN (19:10)
[2018-08-05 19:40] VITALS: BP 138/90
[2018-08-05] MEDS ORDERED: PATCH REMOVAL 1 EA TP SCH (21:00)
[2018-08-06 04:33] VITALS: BP 171/89
[2018-08-06] MEDS: LEVOTHYROXINE SOD 0.137 MG TAB PO SCH (06:14)
[2018-08-06 06:16] VITALS: BP 164/99
[2018-08-06 08:13] VITALS: BP 161/95
[2018-08-06] MEDS: APAP/HYDROCODONE 325/5 TAB PO PRN (08:27)
[2018-08-06] MEDS: PANTOPRAZOLE SOD 40 MG TABEC PO SCH (08:49)
[2018-08-06] MEDS: RAMIPRIL 2.5 MG CAP PO SCH (08:49)
[2018-08-06] MEDS: ENOXAPARIN 40 MG/0.4ML SYR SC SCH (08:49)
[2018-08-06] MEDS: GABAPENTIN 100 MG CAP PO SCH (08:49)
[2018-08-06] MEDS: DOCUSATE SODIUM 100 MG CAP PO SCH (08:49)
[2018-08-06] MEDS: SERTRALINE HCL 50 MG TAB PO SCH (08:49)
[2018-08-06] MEDS: POLYETHYLENE GLYCOL 17 GM PKT PO SCH (08:49)
[2018-08-06] MEDS ORDERED: IBUP600T22 PO (10:36)
[2018-08-06] MEDS ORDERED: DOCU-202 PO (10:36)
[2018-08-06] MEDS ORDERED: GABA-547 PO (10:36)
[2018-08-06] MEDS ORDERED: LOR5/325 PO (10:36)
--- NOTE | 2018-08-06 10:43 | Hospitalist Depart ---
Discharge Summary Reason for Hosp/Final Diag: (1) Knee pain, right Status: Acute Hospital Course & Plan: The patient presented with 07/31 knee pain with bearing weight. She reports that the pain has been present since a fall on 07/19, but there is no record of her complaining about it in the numerous records since. She had an uneventful TKA of that knee about 2 years ago with full recovery. The exam is benign and plain films show no bony abnormalities or problems with the prosthesis. She has had falls since 07/19, so could have injured it then. Now, she is unable to get up without assistance and has much difficulty with ambulation. Dr. Badillo did see patient in consult. [facility] (2) T12 vertebral fracture Status: Acute Hospital Course & Plan: Secondary to a fall on 07/19. She reports that the pain is improving. MRI done prior to admission showed no problems with the spinal canal. Continue Gabapentin, and Percocet for pain. She is to continue wearing the TLSO brace. Will start a bowel regimen to prevent constipation from the Percocet. (3) Adverse drug reaction Status: Acute Hospital Course & Plan: She had complaints of hallucinations, which resolved when Percocet was discontinued. She was switched to Lortab and Ibuprofen. Resolved. (4) Hyperglycemia Status: Acute Hospital Course & Plan: HgA1c on 05/21 was 5.7. Glucose 113 and HgA1C 6.0. (5) Hypokalemia Status: Acute Hospital Course & Plan: Resolved. Potassium 3.6. (6) Polycythemia Status: Chronic Hospital Course & Plan: Secondary to chronic hypoxia. She is to wear O2 24 hours a day. (7) COPD (chronic obstructive pulmonary disease) Status: Chronic Hospital Course & Plan: Lungs are clear. (8) Benign hypertension Status: Chronic Hospital Course & Plan: Continue chronic ramipril. (9) Hypothyroidism Status: Chronic Hospital Course & Plan: Continue chronic levothyroxine. (10) Depression with anxiety Status: Chronic Hospital Course & Plan: Continue chronic sertraline. Departure Latest Vital Signs Vital Signs 08/06/18 08:13 Temp 98.8 Pulse 82 Resp 18 B/P (MAP) 161/95 (117) Pulse Ox 93 O2 Delivery Nasal Cannula O2 Flow Rate 3.0 Weight (Pounds): 157 Result Diagram: 08/04/18 1105 08/05/18 0509 Condition: Improved Discharge: Rehab Facility PT/OT Follow Up For: PT For Strengthening, PT Evaluation and Treat, ST Evaluation and Treat, OT Evaluation and Treat Discharge Instructions Home Meds Active Scripts Ibuprofen (IBUPROFEN) 600 Mg Tablet, 600 MG PO Q6H PRN for PAIN, #60 TAB Prov:ALASWOOD BURTON Sunny [facility] 08/06/18 Hydrocodone Bit/Acetaminophen (HYDROCODON-ACETAMINOPHEN 5-325) 1 Each Tablet, 1 EACH PO Q6H PRN for PAIN, #28 TAB Prov:WOOD ALAS [facility] 08/06/18 Docusate Sodium (DOCUSATE SODIUM) 100 Mg Capsule, 100 MG PO BID, #60 CAPSULE Prov:WOOD ALAS [facility] 08/06/18 Gabapentin (GABAPENTIN) 100 Mg Capsule, 1 TAB PO BID, #60 CAPSULE 0 Refills 1 TABLET TWICE DAILY Prov:WOOD ALAS [facility] 08/06/18 Pantoprazole Sodium (PANTOPRAZOLE SODIUM) 40 Mg Tablet.dr, 40 MG PO QDAY, #30 TAB.SR 3 Refills Prov:COLEMAN DAVIDSON MD 05/29/18 Sertraline Hcl (ZOLOFT) 100 Mg Tablet, 1 TAB PO QDAY, #90 TAB 4 Refills Prov:COLEMAN DAVIDSON MD 11/28/17 Ramipril (RAMIPRIL) 10 Mg Capsule, 1 CAP PO QDAY, #90 CAPSULE 3 Refills Prov:COLEMAN DAVIDSON MD 11/28/17 Levothyroxine Sodium (LEVOTHYROXINE SODIUM) 137 Mcg Tablet, 1 TAB PO QDAY, #90 TAB 3 Refills Prov:COLEMAN DAVIDSON MD 11/28/17 Reported Medications Multivitamin (MULTIVITAMINS) Unknown Strength Tablet, PO 05/15/17 Oxygen (OXYGEN) Unknown Strength Inha, 3 L INH QDAY, #3 L 05/15/17 Calcium Carbonate (CALCIUM) 600 Mg Tablet, 1200 MG PO QHS 05/15/17 Discontinued Scripts Meloxicam (MELOXICAM) 15 Mg Tablet, 15 MG PO QDAY PRN for pain, #30 TAB 3 Refills Prov:COLEMAN DAVIDSON MD 07/30/18 Oxycodone Hcl/Acetaminophen (PERCOCET 7.5-325 MG TABLET) 1 Each Tablet, 1 EACH PO QID PRN for pain, #60 TAB Prov:COLEMAN DAVIDSON MD 07/30/18 Hydroxyzine Hcl (HYDROXYZINE HCL) 25 Mg Tablet, 25 MG PO QHS, #20 TAB 0 Refills Prov:ANH HUTTON MD 07/28/18 Levalbuterol Tartrate (XOPENEX HFA) 15 Gm Hfa.aer.ad, 15 GM IH Q4H PRN for S HORTNESS OF BREATH, #1 INH Prov:WOOD ALAS [facility] 07/25/18 Cyclobenzaprine Hcl (CYCLOBENZAPRINE HCL) 10 Mg Tablet, 10 MG PO TID PRN for MUSCLE SPASMS, #21 TAB Prov:CLAYTON JORGENSEN [facility] 07/21/18 Gabapentin (GABAPENTIN) 100 Mg Capsule, 1-4 MG PO BID, #60 CAPSULE Prov:COLEMAN DAVIDSON MD 07/30/18 Ibuprofen (IBUPROFEN) 600 Mg Tablet, 600 MG PO Q6H PRN for PAIN, #60 TAB Prov:WOOD ALAS [facility] 07/25/18 Guaifenesin (MUCINEX) 600 Mg Tablet.er, 600 MG PO BID, #60 TAB Prov:WOOD ALAS [facility] 07/25/18 Hydrocodone Bit/Acetaminophen (HYDROCODON-ACETAMINOPHEN 5-325) 1 Each Tablet, 1 EACH PO Q4-6H PRN for PAIN, #20 TAB Prov:CLAYTON JORGENSEN [facility] 07/21/18 Diet: Regular Activity: As Tolerated Copies to: COLEMAN DAVIDSON MD ; Venous Thromboembolism Antithrombotics Is Pt On Any Antithrombotics?: No Problem Qualifiers (1) Knee pain, right: Chronicity: acute Qualified Codes: M25.561 - Pain in right knee WOOD ALAS [facility] Aug 06, 2018 10:43
[2018-08-06] MEDS: IBUPROFEN 600 MG TAB PO PRN (12:58)
[2018-08-06] MEDS ORDERED: INFLUENZA VIRUS VAC 0.5ML SYR IM ONLY ONE (15:25)
== END 2018-08-06 10:36 ==
LOC: ER 11:27 → INTOOBSV 15:40 → MED 15:40
PROVIDERS: ADMIT Internal Medicine; ATTEND Internal Medicine
DX: M25.561 Pain in right knee (principal); J44.9 Chronic obstructive pulmonary disease, unspecified; M84.48XD Pathological fracture, other site, subsequent encounter for fracture with routine healing; R73.9 Hyperglycemia, unspecified; E87.6 Hypokalemia; D75.1 Secondary polycythemia; I10 Essential (primary) hypertension; E03.9 Hypothyroidism, unspecified; F34.1 Dysthymic disorder; F41.8 Other specified anxiety disorders; R44.1 Visual hallucinations; T40.2X5A Adverse effect of other opioids, initial encounter
CPT/HCPCS: 36415; 72146; 72148; 73564; 81001; 83036; 85025; 85651; 86140; 96372; 97116; 97162; 97165; 97530; 97535; 99284; A4353; A9270; G0378; J1650; 82040; 82247; 82310; 82374; 82435; 82565; 82947; 84075; 84132; 84155; 84295; 84450; 84460; 84520

== ENCOUNTER → 2018-09-25 | Outpatient (CLI) | payer MEDICARE, BC ==
[2018-08-05 10:35] VITALS: BMI 29.7
[~2018-09-25] MED LIST changes: +DOCU-202 PO; +FURO-45 PO; +LOR5/325 PO; +NYST15CR32 TP; +OXYGEN
[2018-09-25 10:56] LABS: PLATELET COUNT, AUTOMATED 215 K/uL (150-450)
== END ==
LOC: LAB 10:34
PROVIDERS: ATTEND Internal Medicine
DX: R60.9 Edema, unspecified (principal); D75.1 Secondary polycythemia; S22.089A Unspecified fracture of T11-T12 vertebra, initial encounter for closed fracture; G47.33 Obstructive sleep apnea (adult) (pediatric); I27.20 Pulmonary hypertension, unspecified; I10 Essential (primary) hypertension; R94.6 Abnormal results of thyroid function studies
CPT/HCPCS: 36415; 82040; 82247; 82310; 82374; 82435; 82565; 82947; 84075; 84132; 84155; 84295; 84443; 84450; 84460; 84520; 85025

== ENCOUNTER 2018-10-30 00:29 | Day surgery (SDC) | payer MEDICARE, BC ==
[2018-08-05 10:35] VITALS: Ht 154.9 cm; Wt 61.7 kg
[2018-10-30] VITALS (8 sets, daily range): BP systolic 121–143; BP diastolic 77–93
[~2018-10-30] VITALS: Ht 154.9 cm; Wt 61.7 kg
[2018-10-30] MEDS ORDERED: PROPOFOL EMUL(*) 10MG/ML 20 ML 20 ML ONE (07:03)
[2018-10-30] MEDS ORDERED: LIDOCAINE/SOD BICARB 8.4% SYR ID ONE (11:25)
[2018-10-30] MEDS ORDERED: NORMOSOL R SOLN(*) 1000 ML BAG 1,000 ML IV PRN (11:25)
--- NOTE | 2018-10-30 12:19 | Short(Outpt) Discharge Summary ---
Discharge Summary Reason for Hosp/Final Diag: (1) Dysphagia Status: Chronic Hospital Course & Plan: EGD with esophageal dilation completed without problems. Departure Discharge to: Home, Self Care Discharge Instructions Home Meds Active Scripts Levothyroxine Sodium (LEVOTHYROXINE SODIUM) 137 Mcg Tablet, 1 TAB PO QDAY, #90 TAB 3 Refills Prov:COLEMAN DAVIDSON MD 10/04/18 Pantoprazole Sodium (PANTOPRAZOLE SODIUM) 40 Mg Tablet.dr, 40 MG PO QDAY, #90 TAB.SR 2 Refills Prov:COLEMAN DAVIDSON MD 09/25/18 NYSTATIN 356381 UNT/ML Topical Cream (NYSTATIN [id number] UNT/ML Topical Cream) 15 Gm Cream..g., 1 BRIAN TP BID, #30 GM 1 Refill Prov:COLEMAN DAVIDSON MD 09/05/18 Furosemide (FUROSEMIDE) 20 Mg Tablet, 1 TAB PO DIRECTED, #30 TAB 3 Refills 1 tablet daily for 1 week than 1 tablet as needed daily for edema Prov:COLEMAN DAVIDSON MD 09/05/18 [Oxygen ( POC)] No Conflict Check, L NA QDAY, #2 Diagnosis G47.33 , 127.20, 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 life long Prov:COLEMAN DAVIDSON MD 08/23/18 Gabapentin (GABAPENTIN) 100 Mg Capsule, 2 TAB PO BID, #120 CAPSULE 3 Refills Prov:COLEMAN DAVIDSON MD 08/23/18 Docusate Sodium (DOCUSATE SODIUM) 100 Mg Capsule, 100 MG PO BID, #60 CAPSULE Prov:WOOD ALAS 08/06/18 Sertraline Hcl (ZOLOFT) 100 Mg Tablet, 1 TAB PO QDAY, #90 TAB 4 Refills Prov:COLEMAN DAVIDSON MD 11/28/17 Ramipril (RAMIPRIL) 10 Mg Capsule, 1 CAP PO QDAY, #90 CAPSULE 3 Refills Prov:COLEMAN DAVIDSON MD 11/28/17 Reported Medications Hydroxyzine Hcl (HYDROXYZINE HCL) 25 Mg Tablet, 25 MG PO TID PRN for nausea 08/23/18 Multivitamin (MULTIVITAMINS) Unknown Strength Tablet, PO 05/15/17 Calcium Carbonate (CALCIUM) 600 Mg Tablet, 1200 MG PO QHS 05/15/17 Diet: Regular Activity: As Tolerated Special Instructions: Your upper endoscopy was completed without any problems. I didn't find anything concerning in your upper GI tract other than some narrowing in your upper esophagus which I dilated. My office will call you in the next couple of days to see how you're feeling. Problem Qualifiers (1) Dysphagia: Dysphagia type: esophageal phase Qualified Codes: R13.10 - Dysphagia, unspecified SILVIA ENGLAND MD Oct 30, 2018 12:19
--- NOTE | 2018-10-30 13:56 | NUR ---
1245- SBAR REPORT RECEIVED FROM TORITO WERNER. PT. RESTING QUIETLY AND FINISHING UP EATING CRACKERS. 1308- PT. STATES THAT SHE IS READY TO GO HOME SO ORTHOSTATIC BP'S TAKEN. PT. TOLERATED WELL. 1315- PT. TO THE BATHROOM. 1320- PT. GETTING DRESSED. 1330- WENT OVER DISCHARGE INSTRUCTIONS WITH PT. AND . 1335- IV TAKEN OUT AND PRESSURE DRESSING APPLIED. 1340- ESCORTED PT. OUT ACCOMPANIED BY DONALDO WERNER AND .
== END 2018-10-30 13:40 ==
LOC: OR 00:29
PROVIDERS: ATTEND Surgery
DX: R13.10 Dysphagia, unspecified (principal); I10 Essential (primary) hypertension; J44.9 Chronic obstructive pulmonary disease, unspecified; E03.9 Hypothyroidism, unspecified; Z79.899 Other long term (current) drug therapy
CPT/HCPCS: 43248; C1769; J2704

== ENCOUNTER → 2018-12-02 | Outpatient (CLI) | payer MEDICARE, BC ==
[2018-08-05 10:35] VITALS: BMI 29.7
--- NOTE | 2018-12-02 11:22 | EKG ---
FACILITY: [facility] [place] PATIENT NAME: LANA BROCK : [id number] MR: [id number] V: [id number] EXAM DATE: ORDERING PHYSICIAN: SILVIA POLANCO TECHNOLOGIST: LUÍS Antonio Reason : PRE-OP EYELIDS Blood Pressure : / mmHG Vent. Rate : 073 BPM Atrial Rate : 073 BPM P-R Int : 154 ms QRS Dur : 078 ms QT Int : 338 ms P-R-T Axes : 024 -37 013 degrees QTc Int : 372 ms Normal sinus rhythm Possible Left atrial enlargement Left axis deviation Left ventricular hypertrophy Possible Lateral infarct , age undetermined Abnormal ECG When compared with ECG of 01-NOV-2014 18:35, Borderline criteria for Lateral infarct are now present Nonspecific T wave abnormality now evident in Lateral leads QT has shortened Confirmed by SILVIA AHNSEN ([id number]) on 12/02/2018 10:09:33 PM Referred By: COLLIN Confirmed By:SILVIA HANSEN
== END ==
LOC: RESP 11:11
PROVIDERS: ATTEND Anesthesiology
DX: Z01.810 Encounter for preprocedural cardiovascular examination (principal); R94.31 Abnormal electrocardiogram [ECG] [EKG]; L57.4 Cutis laxa senilis; H02.125 Mechanical ectropion of left lower eyelid; H02.122 Mechanical ectropion of right lower eyelid; H04.563 Stenosis of bilateral lacrimal punctum; H04.223 Epiphora due to insufficient drainage, bilateral; M35.7 Hypermobility syndrome; H53.8 Other visual disturbances
CPT/HCPCS: 93005

== ENCOUNTER 2019-02-06 12:30 | Outpatient (RCR) | payer MEDICARE, BC ==
[2018-08-05 10:35] VITALS: BMI 29.7
== END 2019-02-10 ==
LOC: CARD 12:30
PROVIDERS: ATTEND Internal Medicine
DX: I27.20 Pulmonary hypertension, unspecified (principal); R06.00 Dyspnea, unspecified; J44.9 Chronic obstructive pulmonary disease, unspecified
CPT/HCPCS: G0239 ×19

== ENCOUNTER 2019-02-27 11:07 | Emergency (ER) | payer MEDICARE, BC ==
[2018-08-05 10:35] VITALS: Wt 63.5 kg
[~2019-02-27 11:07] MED LIST changes: +IPRA3AMP10 IH
--- NOTE | 2019-02-27 11:10 | ER Report ---
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 Patient was seen over at her primary care provider's office and was found to be 85% on 3 L which is her baseline. Patient does report feeling under the weather for the past several days with general malaise, body aches. Patient did have bilateral scant wheezing on examination. She does admit to subjective fevers and chills. REVIEW OF SYSTEMS: Constitutional: + fever, + chills. Eyes: No discharge. ENT: No sore throat. Cardiovascular: No chest pain, no palpitations. Respiratory: + non productive cough, no shortness of breath, + hypoxia Gastrointestinal: No abdominal pain, no vomiting. Genitourinary: No hematuria. Musculoskeletal: No back pain. Skin: No rashes. Neurological: No headache. Allergies: Coded Allergies: No Known Drug Allergies (Verified , 02/27/19) Home Meds Active Scripts Azithromycin (Z-PACK) 250 Mg Tablet, 0 PO QDAY, #6 DOSE-PACK Prov:KE STRONG DO 02/27/19 Prednisone (PREDNISONE) 50 Mg Tablet, 50 MG PO QDAY for 4 Days, #4 TAB Prov:KE STRONG DO 02/27/19 Ramipril (RAMIPRIL) 10 Mg Capsule, 1 CAP PO QDAY, #90 CAPSULE 4 Refills Prov:COLEMAN DAVIDSON MD 01/16/19 Levothyroxine Sodium (LEVOTHYROXINE SODIUM) 137 Mcg Tablet, 1 TAB PO QDAY, #90 TAB 3 Refills Prov:COLEMAN DAVIDSON MD 10/04/18 Pantoprazole Sodium (PANTOPRAZOLE SODIUM) 40 Mg Tablet.dr, 40 MG PO QDAY, #90 TAB.SR 2 Refills Prov:COLEMAN DAVIDSON MD 09/25/18 NYSTATIN [id number] UNT/ML Topical Cream (NYSTATIN [id number] UNT/ML Topical Cream) 15 Gm Cream..g., 1 BRIAN TP BID, #30 GM 1 Refill Prov:COLEMAN DAVIDSON MD 09/05/18 [Oxygen ( POC)] No Conflict Check, L NA QDAY, #2 Diagnosis G47.33 , 127.20, 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 life long Prov:COLEMAN DAVIDSON MD 08/23/18 Sertraline Hcl (ZOLOFT) 100 Mg Tablet, 1 TAB PO QDAY, #90 TAB 4 Refills Prov:COLEMAN DAVIDSON MD 11/28/17 Reported Medications Multivitamin (MULTIVITAMINS) Unknown Strength Tablet, PO 05/15/17 Calcium Carbonate (CALCIUM) 600 Mg Tablet, 1200 MG PO QHS 05/15/17 Discontinued Reported Medications Hydroxyzine Hcl (HYDROXYZINE HCL) 25 Mg Tablet, 25 MG PO TID PRN for nausea 08/23/18 Discontinued Scripts Furosemide (FUROSEMIDE) 20 Mg Tablet, 1 TAB PO DIRECTED, #30 TAB 3 Refills 1 tablet daily for 1 week than 1 tablet as needed daily for edema Prov:COLEMAN DAVIDSON MD 09/05/18 Gabapentin (GABAPENTIN) 100 Mg Capsule, 2 TAB PO BID, #120 CAPSULE 3 Refills Prov:COLEMAN DAVIDSON MD 08/23/18 Docusate Sodium (DOCUSATE SODIUM) 100 Mg Capsule, 100 MG PO BID, #60 CAPSULE Prov:[employer] REPRESENTATIVE 08/06/18 Hx Smoking: No Smoking Status: Never Smoker Exposure to Second Hand Smoke?: Yes () Hx Substance Use Disorder: No Hx Alcohol Use: No Constitutional Vital Sign - Last 24 Hours 02/27/19 02/27/19 02/27/19 02/27/19 11:15 11:30 11:43 11:45 Temp 98.7 Pulse 83 96 Resp 18 16 B/P (MAP) 121/91 112/72 (85) Pulse Ox 85 O2 Delivery Nasal Cannula O2 Flow Rate 5.0 02/27/19 02/27/19 02/27/19 02/27/19 11:45 12:00 12:30 13:00 Pulse 80 89 B/P (MAP) 172/142 (152) 152/73 (99) 137/80 (99) Pulse Ox 90 92 92 O2 Delivery Nasal Cannula O2 Flow Rate 5.0 Physical Exam General Appearance: The patient is alert, has no immediate need for airway protection and no signs of toxicity. NAD Eyes: Pupils equal and round no pallor or injection. ENT, Mouth: Mucous membranes are moist. Respiratory: There are no retractions, + b/l wheezing in all lung lay without crackles or rhonchi Cardiovascular: Regular rate and rhythm. Gastrointestinal: Abdomen is soft and non tender, no masses, bowel sounds normal. Neurological: Alert and oriented, no focal neurological findings on examination Skin: Warm and dry, no rashes. Musculoskeletal: Neck is supple non tender. Extremities are nontender, nonswollen and have full range of motion. DIFFERENTIAL DIAGNOSIS: After history and physical exam differential diagnosis was considered for shortness of breath including but not limited to pulmonary infectious process, COPD, asthma, pulmonary embolus and congestive heart failure. Medical Decision Making Data Points Result Diagram: 02/27/19 1139 02/27/19 1139 Laboratory Hematology Test 02/27/19 00:00 02/27/19 11:39 Influenza Virus Type A (PCR) Negative (NEGATIVE) Influenza Virus Type B (PCR) Negative (NEGATIVE) Red Blood Count 5.53 M/uL (4.17-5.56) Mean Corpuscular Volume 86.6 fL (80.0-96.0) Mean Corpuscular Hemoglobin 29.0 pg (26.0-33.0) Mean Corpuscular Hemoglobin Concent 33.5 g/dL (32.0-36.0) Red Cell Distribution Width 16.6 % (11.5-14.5) Mean Platelet Volume 8.8 fL (7.2-11.1) Neutrophils (%) (Auto) 89.5 % (39.4-72.5) Lymphocytes (%) (Auto) 6.7 % (17.6-49.6) Monocytes (%) (Auto) 3.2 % (4.1-12.4) Eosinophils (%) (Auto) 0.4 % (0.4-6.7) Basophils (%) (Auto) 0.2 % (0.3-1.4) Nucleated RBC Relative Count (auto) 0.0 /100WBC Neutrophils # (Auto) 7.2 K/uL (2.0-7.4) Lymphocytes # (Auto) 0.5 K/uL (1.3-3.6) Monocytes # (Auto) 0.3 K/uL (0.3-1.0) Eosinophils # (Auto) 0.0 K/uL (0.0-0.5) Basophils # (Auto) 0.0 K/uL (0.0-0.1) Nucleated RBC Absolute Count (auto) 0.00 K/uL Blood Gas Patient Temperature 99.7 DEGREES Venous Blood pH 7.36 (7.31-7.41) Venous Blood Partial Pressure CO2 52 mmHg Venous Blood Partial Pressure O2 < 35 mmHg Venous Blood HCO3 29 mmol/L Venous Blood Oxygen Saturation 45 % Venous Blood Base Excess 4 mmol/L Oxygen Liters/Minute 5l Sodium Level 140 mmol/L (137-145) Potassium Level 3.7 mmol/L (3.5-5.0) Chloride Level 101 mmol/L (98-107) Carbon Dioxide Level 31 mmol/L (22-31) Blood Urea Nitrogen 19 mg/dl (7-18) Creatinine 0.70 mg/dl (0.52-1.04) Glomerular Filtration Rate Calc > 60.0 Random Glucose 103 mg/dl (75-110) Calcium Level 9.4 mg/dl (8.4-10.2) Total Bilirubin 0.5 mg/dl (0.2-1.3) Aspartate Amino Transf (AST/SGOT) 39 U/L (0-35) Alanine Aminotransferase (ALT/SGPT) 32 U/L (0-56) Alkaline Phosphatase 93 U/L (0-126) Troponin I < 0.012 ng/ml B-Type Natriuretic Peptide 13 pg/ml (0-100) Total Protein 7.3 g/dl (6.3-8.2) Albumin 4.2 g/dl (3.5-5.0) Chemistry Test 02/27/19 00:00 02/27/19 11:39 Influenza Virus Type A (PCR) Negative (NEGATIVE) Influenza Virus Type B (PCR) Negative (NEGATIVE) White Blood Count 8.1 k/uL (4.5-11.0) Red Blood Count 5.53 M/uL (4.17-5.56) Hemoglobin 16.0 g/dL (12.0-16.0) Hematocrit 47.9 % (34.0-47.0) Mean Corpuscular Volume 86.6 fL (80.0-96.0) Mean Corpuscular Hemoglobin 29.0 pg (26.0-33.0) Mean Corpuscular Hemoglobin Concent 33.5 g/dL (32.0-36.0) Red Cell Distribution Width 16.6 % (11.5-14.5) Platelet Count 139 K/uL (150-450) Mean Platelet Volume 8.8 fL (7.2-11.1) Neutrophils (%) (Auto) 89.5 % (39.4-72.5) Lymphocytes (%) (Auto) 6.7 % (17.6-49.6) Monocytes (%) (Auto) 3.2 % (4.1-12.4) Eosinophils (%) (Auto) 0.4 % (0.4-6.7) Basophils (%) (Auto) 0.2 % (0.3-1.4) Nucleated RBC Relative Count (auto) 0.0 /100WBC Neutrophils # (Auto) 7.2 K/uL (2.0-7.4) Lymphocytes # (Auto) 0.5 K/uL (1.3-3.6) Monocytes # (Auto) 0.3 K/uL (0.3-1.0) Eosinophils # (Auto) 0.0 K/uL (0.0-0.5) Basophils # (Auto) 0.0 K/uL (0.0-0.1) Nucleated RBC Absolute Count (auto) 0.00 K/uL Blood Gas Patient Temperature 99.7 DEGREES Venous Blood pH 7.36 (7.31-7.41) Venous Blood Partial Pressure CO2 52 mmHg Venous Blood Partial Pressure O2 < 35 mmHg Venous Blood HCO3 29 mmol/L Venous Blood Oxygen Saturation 45 % Venous Blood Base Excess 4 mmol/L Oxygen Liters/Minute 5l Glomerular Filtration Rate Calc > 60.0 Calcium Level 9.4 mg/dl (8.4-10.2) Total Bilirubin 0.5 mg/dl (0.2-1.3) Aspartate Amino Transf (AST/SGOT) 39 U/L (0-35) Alanine Aminotransferase (ALT/SGPT) 32 U/L (0-56) Alkaline Phosphatase 93 U/L (0-126) Troponin I < 0.012 ng/ml B-Type Natriuretic Peptide 13 pg/ml (0-100) Total Protein 7.3 g/dl (6.3-8.2) Albumin 4.2 g/dl (3.5-5.0) EKG/Imaging Imaging PATIENT NAME: Aury Chan : 1945 MR: [id number] V: [id number] EXAM DATE: ORDERING PHYSICIAN: KE STRONG TECHNOLOGIST: Location: [facility] Patient: Aury Chan : 1945 Visit/Account:[id number] Date of Sevice: 02/27/2019 CHEST PA LAT INDICATION: RESP DISTRESS COMPARISON: 07/24/2018 FINDINGS: Cardiac silhouette is upper limits of normal. There is no focal infiltrate or lobar consolidation. Stable scarring is noted within the right midlung. There is no pneumothorax or pleural effusion. Mild elevation right hemidiaphragm is again noted IMPRESSION: 1. No acute cardiopulmonary process. Stable right midlung scarring ED Course/Re-evaluation ED Course Patient is a 73-year-old female with a history of pulmonary disease on 3 L baseline oxygen via nasal cannula found to be hypoxic at 85% [facility] PCP visit today. Patient was given DuoNeb with her current DuoNeb in the emergency department. Patient denies shortness of breath or exertional dyspnea and reports that over the past several days she has had myalgias, arthralgias, general malaise, nonproductive cough. There was bilateral wheezing on exam in all lung lay. Patient was given prednisone and fluid bolus for hydration. Prescription provided for 4 days of prednisone treatment, Z-Norm. Blood cultures were c ollected and pending, troponin negative, there was no leukocytosis, electrolytes are stable. I updated the patient regarding these findings and she voiced understanding. Chest x-ray showed no acute pulmonary process. Recommend close PCP follow-up next 24-48 hours. Return precautions provided. Decision to Disposition Date: February 27, 2019 Decision to Disposition Time: 12:59 Depart Departure Latest Vital Signs Vital Signs Date Time Temp Pulse Resp B/P (MAP) Pulse Ox O2 Delivery O2 Flow Rate FiO2 02/27/19 13:00 89 137/80 (99) 92 02/27/19 11:45 Nasal Cannula 5.0 02/27/19 11:45 16 02/27/19 11:15 98.7 Impression: Primary Impression: Hypoxia Condition: Improved Disposition: HOME OR SELF-CARE Referrals: COLEMAN DAVIDSON MD (PCP) New Scripts Azithromycin (Z-PACK) 250 Mg Tablet 0 PO QDAY, #6 DOSE-PACK Prov: KE STRONG DO 02/27/19 Prednisone (PREDNISONE) 50 Mg Tablet 50 MG PO QDAY for 4 Days, #4 TAB Prov: KE STRONG DO 02/27/19 Patient Instructions: Hypoxia (ED) Additional Instructions: Please follow up closely with her primary care provider in the next 24-48 hours. Please complete your course of prednisone 50 mg daily for the next 4 days. Please completed Z-Norm as prescribed to cover for community-acquired pneumonia possible infection. Please return promptly if you develop increasing shortness breath, chest pains, fevers or chills, inability to keep down food or fluids. KE STRONG DO February 27, 2019 11:10
[2019-02-27] MEDS ORDERED: NS(*) 0.9% 1000 ML BAG 1,000 ML IV ONE (11:32)
[2019-02-27] MEDS ORDERED: predniSONE 20 MG TAB PO ONE (11:35)
[2019-02-27] MEDS: ALBUTEROL/IPRATROPIUM 3 ML NEB NEB SCH (11:43)
[2019-02-27 11:56] LABS: PLATELET COUNT, AUTOMATED 139 K/uL (150-450)
--- NOTE | 2019-02-27 12:21 | RADIOLOGY IMAGING REPORT ---
FACILITY: [facility] PATIENT NAME: Aury Chan : 1945 MR: [id number] V: [id number] EXAM DATE: ORDERING PHYSICIAN: KE STRONG TECHNOLOGIST: Location: [facility] [place] Patient: Aury Chan : 1945 Visit/Account:[id number] Date of Sevice: 02/27/2019 CHEST PA LAT INDICATION: RESP DISTRESS COMPARISON: 07/24/2018 FINDINGS: Cardiac silhouette is upper limits of normal. There is no focal infiltrate or lobar consolidation. Stable scarring is noted within the right midl gabino. There is no pneumothorax or pleural effusion. Mild elevation right hemidiaphragm is again noted IMPRESSION: 1. No acute cardiopulmonary process. Stable right midlung scarring Report Dictated By: Gil Mercado at 02/27/2019 12:14 PM Report E-Signed By: Gil Mercado at 02/27/2019 12:16 PM WSN:[id number]
[2019-02-27 13:00] VITALS: BP 137/80
[2019-02-27] MEDS ORDERED: PRED50TA22 PO (13:01)
[2019-02-27] MEDS ORDERED: AZIT-17 PO (13:01)
== END 2019-02-27 13:09 | disposition home or self-care (01) ==
LOC: ER 11:29
DX: R09.02 Hypoxemia (principal)
CPT/HCPCS: 36415; 71046; 82803; 83880; 84484; 85025; 87040; 87502; 94644; 96360; 99283; J7030; J7512; J7620; 82040; 82247; 82310; 82374; 82435; 82565; 82947; 84075; 84132; 84155; 84295; 84450; 84460; 84520

== ENCOUNTER → 2019-03-07 | Outpatient (CLI) | payer MEDICARE, BC ==
[2018-08-05 10:35] VITALS: BMI 29.7
[~2019-03-07] MED LIST changes: +AZIT-17 PO; +PRED50TA22 PO
--- NOTE | 2019-03-07 17:31 | RADIOLOGY IMAGING REPORT ---
FACILITY: [facility] PATIENT NAME: Aury Chan : 1945 MR: [id number] V: [id number] EXAM DATE: ORDERING PHYSICIAN: CRUZ BATISTA TECHNOLOGIST: Location: [facility] Patient: Aury Chan : 1945 Visit/Account:[id number] Date of Sevice: 03/07/2019 CT CHEST W/O CONTRAST Indication: Increased oxygen use. Comparison: None TECHNIQUE: Noncontrast CT thoracic inlet through the adrenal glands obtained. History, external anabel ng as well as prone and supine position were employed. One of the following dose optimization techniq ues was utilized in the performance of this exam: automated exposure control; adjustment of the mA an d/or kV according to the patient's size; or use of an iterative reconstruction technique. Specific d etails can be referenced in the facility's radiology CT exam operational policy. FINDINGS: Lungs: On expiratory timing images, there are several geographic areas of air trapping. Pleural-base d opacities are seen throughout both lungs. There is no evidence of bronchiectasis in the right or le ft lung. Linear atelectasis/scarring is seen in the right lung base. Mediastinum / melissa: The main pulmonary artery measures 3.4 cm transverse. The right pulmonary artery measures 2.1 cm. Heart size is normal. Musculoskeletal / Body wall: Ribs are intact. Anterior compression fractures seen in the lower thorac ic spine, at T12. Lower neck: Normal. Upper abdomen: Visualized organs of the upper abdomen are normal. IMPRESSION: 1. Pleural-based reticular opacities, areas of air trapping, and right lower lobe linear atelectasis. These findings are consistent with interstitial lung disease. 2. Enlarged right main pulmonary artery, consistent with pulmonary arterial hypertension. 3. Anterior compression fracture T12, of indeterminate age. Report Dictated By: Eric Khan at 03/07/2019 5:15 PM Report E-Signed By: Eric Khan at 03/07/2019 5:25 PM WSN:[id number]
== END ==
LOC: CT 02-28 02:40
PROVIDERS: ATTEND Internal Medicine
DX: R09.02 Hypoxemia (principal); I27.20 Pulmonary hypertension, unspecified; J84.9 Interstitial pulmonary disease, unspecified
CPT/HCPCS: 71250; 93306

== ENCOUNTER → 2019-03-12 | Outpatient (CLI) | payer MEDICARE, BC ==
[2018-08-05 10:35] VITALS: BMI 29.7
[2019-03-12 08:28] LABS: PLATELET COUNT, AUTOMATED 249 K/uL (150-450)
== END ==
LOC: LAB 08:10
PROVIDERS: ATTEND Internal Medicine
DX: I27.20 Pulmonary hypertension, unspecified (principal); R09.02 Hypoxemia; J84.9 Interstitial pulmonary disease, unspecified
CPT/HCPCS: 36415; 82040; 82247; 82310; 82374; 82435; 82565; 82947; 84075; 84132; 84155; 84295; 84450; 84460; 84520; 85025; 86038

== ENCOUNTER 2019-06-04 11:16 | Emergency (ER) | payer MEDICARE, BC ==
[2018-08-05 10:35] VITALS: Wt 63.5 kg
[2019-06-04] MEDS ORDERED: RAMI10CA9 PO (11:23)
[2019-06-04] MEDS ORDERED: OXYGENHOME INH (11:23)
--- NOTE | 2019-06-04 11:26 | ER Report ---
History and Physical Time Seen By MD: 11:21 Hx. of Stated Complaint: NOSEBLEED X 30 MINUTES HPI/ROS CHIEF COMPLAINT: Nose bleed HISTORY OF PRESENT ILLNESS: Patient is a 74 yo F here c/o of a nose bleed that started 30 min ago and would not stop bleeding. She was on her exercise bike at home when it started. History of HTN. On arrival her BP was 163/108 with bleeding from the left nostril. Denies Headache, dizziness, blurry vision, shortness of breath or chest pain. Allergies: Coded Allergies: No Known Drug Allergies (Verified , 06/04/19) Home Meds Active Scripts Levothyroxine Sodium (LEVOTHYROXINE SODIUM) 137 Mcg Tablet, 1 TAB PO QDAY, #90 TAB 3 Refills Prov:COLEMAN DAVIDSON MD 10/04/18 Pantoprazole Sodium (PANTOPRAZOLE SODIUM) 40 Mg Tablet.dr, 40 MG PO QDAY, #90 TAB.SR 2 Refills Prov:COLEMAN DAVIDSON MD 09/25/18 Sertraline Hcl (ZOLOFT) 100 Mg Tablet, 1 TAB PO QDAY, #90 TAB 4 Refills Prov:COLEAMN DAVIDSON MD 11/28/17 Reported Medications Oxygen (OXYGEN) Inha, 2-3 L INH CONTINUOUS, L 06/04/19 Ramipril (RAMIPRIL) 10 Mg Capsule, 10 MG PO QDAY, CAPSULE 06/04/19 Multivitamin (MULTIVITAMINS) Unknown Strength Tablet, PO 05/15/17 Calcium Carbonate (CALCIUM) 600 Mg Tablet, 1200 MG PO QHS 05/15/17 Discontinued Scripts [Oxygen ( POC)] No Conflict Check, L NA QDAY, #4 Diagnosis G47.33 , 127.20, 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 life long Prov:COLEMAN DAVIDSON MD 03/19/19 Ramipril (RAMIPRIL) 10 Mg Capsule, 1 CAP PO QDAY, #90 CAPSULE 4 Refills Prov:COLEMAN DAVIDSON MD 01/16/19 Past Medical/Surgical History Past medical history of HTN, Hypercholesterolemia, 3L O2 continuous, pneumonia, pneumothorax, chest tube, GERD, gall bladder disease, arthritis, right leg fracture, bilateral ankle fractures, back pain, T12 fx, glasses, hypothyroid, Past surgical history of colonoscopy, cholecystectomy, L ankle ORIF, back surgery, tonsillectomy Reviewed Nurses Notes: Yes Hx Smoking: No Smoking Status: Never Smoker Exposure to Second Hand Smoke?: Yes () Hx Substance Use Disorder: No Hx Alcohol Use: No Constitutional Vital Sign - Last 24 Hours 06/04/19 06/04/19 06/04/19 06/04/19 11:24 11:30 12:00 12:30 Pulse 74 82 67 B/P (MAP) 141/83 (102) 129/81 (97) 130/84 (99) Pulse Ox 93 92 90 O2 Flow Rate 4.0 Physical Exam General appearance: Alert no distress. HEENT: Collin blood from left nare Respiratory: Chest is non tender, lungs are clear to auscultation. Cardiac: Regular rate and rhythm DIFFERENTIAL DIAGNOSIS: After history and physical exam differential diagnosis was considered for hemorrhage, epistaxis, HTN Medical Decision Making ED Course/Re-evaluation ED Course Patient presented to the ED with a bloody nose that would not stop for 30 minutes at home after riding her exercise bike. She has a dx of HTN. States she has had about 4 bloody noses in the last month but all stopped after a few minutes. On arrival patient's BP was 168/108. Is also on oxygen at home with a nasal canula. Denies any vision changes, CROW or dizziness. Took her BP meds this morning. Patient was put on a oxygen mask at 4L. Given 3 squirts of phenylephrine nose spray and a nasal clamp which stopped the bleed in about 10 minutes. Patient's status improved and she was discharged with return precautions. Decision to Disposition Date: Jun 04, 2019 Decision to Disposition Time: 12:31 Depart Departure Latest Vital Signs Vital Signs Date Time Temp Pulse Resp B/P (MAP) Pulse Ox O2 Delivery O2 Flow Rate FiO2 06/04/19 12:30 67 130/84 (99) 90 06/04/19 11:24 4.0 Impression: Primary Impression: Epistaxis Condition: Improved Disposition: HOME OR SELF-CARE Referrals: COLEMAN DAVIDSON MD (PCP) Patient Instructions: Nosebleed (ED) Additional Instructions: Increase fluid intake. Get plenty of rest. Follow up with your primary care provider in the next week. Return to the ER if condition worsens. Try using [place] water soluble gel for your nose to keep it moist. Make sure that you are taking your medication as prescribed. CLAYTON JORGENSEN Jun 04, 2019 11:26
[2019-06-04] MEDS ORDERED: ENT KIT ONE (11:27)
[2019-06-04 12:30] VITALS: BP 130/84
[2019-06-04] MEDS ORDERED: PHENYLEPHRINE 0.5% 15 ML BTL ONE (12:35)
[2019-06-04] MEDS ORDERED: CEPH500T7 PO (21:12)
[2019-06-05] MEDS ORDERED: MUPI22OI28 TP (15:21)
== END 2019-06-04 12:38 | disposition home or self-care (01) ==
LOC: ER 11:46
DX: R04.0 Epistaxis (principal)
CPT/HCPCS: 30901; 99282; A9270

== ENCOUNTER 2019-06-04 20:16 | Emergency (ER) | payer MEDICARE, BC ==
[2018-08-05 10:35] VITALS: Wt 63.5 kg
[2019-06-04 20:23] VITALS: BP 136/76
--- NOTE | 2019-06-04 20:24 | ER Report ---
History and Physical Time Seen By MD: 20:20 HPI/ROS CHIEF COMPLAINT: nose bleed HISTORY OF PRESENT ILLNESS: Patient is a 74 year old female presenting to ED with 3 nose bleeds today that lasted over 30 minutes. She was in the ED early today for her first nose bleed which resolved with pressure. Was given phenylepherine. After discharge she had 2 more nose bleeds that she resolved on her own with the left over phenylepherine. Her family encouraged her to come back in due to the amount of blood loss that she had. Not currently bleeding. Denies dizziness, headache or blurry vision. Allergies: Coded Allergies: No Known Drug Allergies (Verified , 06/04/19) Home Meds Active Scripts Cephalexin 500 Mg Tab (KEFLEX 500 MG TAB) 500 Mg Tablet, 500 MG PO Q6H, #26 TAB Prov:[facility] CMA 06/04/19 Levothyroxine Sodium (LEVOTHYROXINE SODIUM) 137 Mcg Tablet, 1 TAB PO QDAY, #90 TAB 3 Refills Prov:COLEMAN DAVIDSON MD 10/04/18 Pantoprazole Sodium (PANTOPRAZOLE SODIUM) 40 Mg Tablet.dr, 40 MG PO QDAY, #90 TAB.SR 2 Refills Prov:COLEMAN DAVIDSON MD 09/25/18 Sertraline Hcl (ZOLOFT) 100 Mg Tablet, 1 TAB PO QDAY, #90 TAB 4 Refills Prov:COLEMAN DAVIDSON MD 11/28/17 Reported Medications Oxygen (OXYGEN) Inha, 2-3 L INH CONTINUOUS, L 06/04/19 Ramipril (RAMIPRIL) 10 Mg Capsule, 10 MG PO QDAY, CAPSULE 06/04/19 Multivitamin (MULTIVITAMINS) Unknown Strength Tablet, PO 05/15/17 Calcium Carbonate (CALCIUM) 600 Mg Tablet, 1200 MG PO QHS 05/15/17 Discontinued Scripts [Oxygen ( POC)] No Conflict Check, L NA QDAY, #4 Diagnosis G47.33 , 127.20, 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 life long Prov:COLEMAN DAVIDSON MD 03/19/19 Ramipril (RAMIPRIL) 10 Mg Capsule, 1 CAP PO QDAY, #90 CAPSULE 4 Refills Prov:COLEMAN DAVIDSON MD 01/16/19 Past Medical/Surgical History Past medical history of HTN, Hypercholesterolemia, 3L O2 continuous, pneumonia, pneumothorax, chest tube, GERD, gall bladder disease, arthritis, right leg fracture, bilateral ankle fractures, back pain, T12 fx, glasses, hypothyroid, Past surgical history of colonoscopy, cholecystectomy, L ankle ORIF, back surgery, tonsillectomy Reviewed Nurses Notes: Yes Hx Smoking: No Smoking Status: Never Smoker Exposure to Second Hand Smoke?: Yes () Hx Substance Use Disorder: No Hx Alcohol Use: No Constitutional Vital Sign - Last 24 Hours 06/04/19 06/04/19 06/04/19 20:23 20:30 21:00 Temp 97.6 Pulse 91 94 80 Resp 24 B/P (MAP) 136/76 Pulse Ox 90 88 87 O2 Delivery Nasal Cannula Physical Exam General appearance: Alert no distress. HEENT: small amount of dried blood in left nare, small amount of dried blood in posterior oropharynx Respiratory: Chest is non tender, lungs are clear to auscultation. Cardiac: Regular rate and rhythm DIFFERENTIAL DIAGNOSIS: After history and physical exam differential diagnosis was considered for epistaxis, hemorrhage, fracture Medical Decision Making Data Points Result Diagram: 06/04/192043 Laboratory Hematology Test 06/04/19 20:44 White Blood Count 6.3 k/uL (4.5-11.0) Red Blood Count 4.94 M/uL (4.17-5.56) Hemoglobin 15.0 g/dL (12.0-16.0) Hematocrit 44.1 % (34.0-47.0) Mean Corpuscular Volume 89.2 fL (80.0-96.0) Mean Corpuscular Hemoglobin 30.3 pg (26.0-33.0) Mean Corpuscular Hemoglobin Concent 34.0 g/dL (32.0-36.0) Red Cell Distribution Width 13.0 % (11.5-14.5) Platelet Count 225 K/uL (150-450) Mean Platelet Volume 9.0 fL (7.2-11.1) Neutrophils (%) (Auto) 64.6 % (39.4-72.5) Lymphocytes (%) (Auto) 23.3 % (17.6-49.6) Monocytes (%) (Auto) 7.9 % (4.1-12.4) Eosinophils (%) (Auto) 3.3 % (0.4-6.7) Basophils (%) (Auto) 0.9 % (0.3-1.4) Nucleated RBC Relative Count (auto) 0.1 /100WBC Neutrophils # (Auto) 4.1 K/uL (2.0-7.4) Lymphocytes # (Auto) 1.5 K/uL (1.3-3.6) Monocytes # (Auto) 0.5 K/uL (0.3-1.0) Eosinophils # (Auto) 0.2 K/uL (0.0-0.5) Basophils # (Auto) 0.1 K/uL (0.0-0.1) Nucleated RBC Absolute Count (auto) 0.00 K/uL ED Course/Re-evaluation ED Course Patient presented to ED after 2 nose bleeds that lasted longer than 30 minutes. Had a third nose bleed earlier today for which she came to the ED for. It resolved with phenylepherine in ED. Resolved the next two at home on her own with more phenylepeherine. Was not bleeding in ED this time. Physcial exam was benign. Differential diagnoses considered. Patient was given 2 Rhino rockets soaked with phenylepherine in left nare. CBC was ordered. No sign of anemia. Instructed to leave it there for 2 days until she can get in to see Dr. Coyle with ENT. Given Rx for 500mg Keflex q6h x7 days to reduce chances of infection. Patient understood condition and left in an improved condition. Decision to Disposition Date: Jun 04, 2019 Decision to Disposition Time: 20:59 Depart Departure Latest Vital Signs Vital Signs Date Time Temp Pulse Resp B/P (MAP) Pulse Ox O2 Delivery O2 Flow Rate FiO2 06/04/19 21:00 80 87 06/04/19 20:23 97.6 24 136/76 Nasal Cannula Impression: Primary Impression: Epistaxis Condition: Improved Disposition: HOME OR SELF-CARE Referrals: COLEMAN DAVIDSON MD (PCP) NGOC COYLE JR, MD New Scripts Cephalexin 500 Mg Tab (KEFLEX 500 MG TAB) 500 Mg Tablet 500 MG PO Q6H, #26 TAB Prov: [facility] CMA 06/04/19 Patient Instructions: GENERAL ER DISCHARGE INSTRUCTIONS Additional Instructions: Leave in packing until you see ENT. Use of ovre the counter saline spray (ocean spray) 1-2 daily to reduce the dryness of the mucous membranes of the nose. Take antibiotics as instructed. Follow up with ENT. Return to ED if symptoms worsen. CLAYTON JORGENSEN Jun 04, 2019 20:24
[2019-06-04 20:55] LABS: PLATELET COUNT, AUTOMATED 225 K/uL (150-450)
[2019-06-04] MEDS ORDERED: CEPHALEXIN 500 MG CAP TH 2 CAP/BOTTLE PO ONE (21:10)
[2019-06-04] MEDS ORDERED: CEPH500T7 PO (21:12)
[2019-06-05] MEDS ORDERED: MUPI22OI28 TP (15:21)
== END 2019-06-04 21:20 | disposition home or self-care (01) ==
LOC: ER 20:24
DX: R04.0 Epistaxis (principal)
CPT/HCPCS: 36415; 85025; 99282